=== PATIENT | female | born 1930 | race Caucasian/White ===

== ENCOUNTER 2017-05-17 08:44 | Day surgery (SDC) | payer MEDICARE ==
[~2017-05-17 08:44] MED LIST: Buffered Lidocaine 0.9% SYRIN* 5 ML/SYR SYRINGE INTRADERM ONE; Dexamethasone IV* 4 MG/ML 1 ML (4 MG) IV SLOW PU ONE; Famotidine IV* 10 MG/ML 2 ML (20 mg) IV ONE
[2017-05-17] MEDS ORDERED: Dexamethasone IV* 4 MG/ML 1 ML (4 MG) ONE (09:04)
[2017-05-17] MEDS ORDERED: Famotidine IV* 10 MG/ML 2 ML (20 mg) ONE (09:04)
[2017-05-17] MEDS ORDERED: Buffered Lidocaine 0.9% SYRIN* 5 ML/SYR SYRINGE ONE (09:04)
[2017-05-17] MEDS ORDERED: Oxymetazoline 0.05% NASAL SPR* 15 ML BTL ONE (10:35)
[2017-05-17] MEDS ORDERED: Lidocaine 4% TOPICAL* 50 ML TOP.SOLN ONE (10:36)
[2017-05-17] MEDS ORDERED: Lidocaine 2% PF * 5 ML VIAL ONE (10:44)
[2017-05-17] MEDS ORDERED: Propofol* 10 MG/ML 20 ML BTL IV PUSH ONE (10:44)
[2017-05-17] MEDS ORDERED: Silver Nitrate/Potassium Nitr* 1 EA STICK ONE ×2 (10:54→11:38)
[2017-05-17] MEDS ORDERED: Phenylephrine IV* 40 MCG/ML 10 ML SYRINGE ONE (11:15)
[2017-05-17] MEDS ORDERED: Acetaminophen TAB* 325 MG ONE (11:55)
[2017-05-17 12:48] VITALS: BP 123/91
--- NOTE | 2017-05-17 16:01 | OP ---
DATE OF OPERATION: 05/17/17 - [facility] DATE OF : 32 SURGEON: Salvador Cash MD. ANESTHESIOLOGIST: Vimal Miramontes MD ANESTHESIA: General laryngeal mask airway anesthesia. PRE-OP DIAGNOSIS: Epistaxis left side. POST-OP DIAGNOSIS: Epistaxis left side. OPERATIVE PROCEDURE: Endoscopic control of epistaxis from the left side. COMPLICATIONS: None. DISPOSITION: Good. SPECIMENS: None. ESTIMATED BLOOD LOSS: None. DESCRIPTION OF PROCEDURE: The patient was taken to the operating room and placed in the supine position on the operating table. General anesthesia was induced, maintained with laryngeal mask airway anesthesia. Left nostril was packed with cottonoids. After several minutes, this was removed and the endoscopes were used to visualize the nasal cavity. There is no definitive bleeding site, but appeared to be may be a little telangiectatic group of vessels on the posterior middle turbinate and also may be on the mid septum. Used silver nitrate cautery to cauterize the spots and couple more places along the floor of the nose that might have been bleeding as well. The patient tolerated the procedure well. No complications. Transferred to recovery room in stable condition. [id number]/CPS #: [id number] MTDD
== END 2017-05-17 12:49 | disposition home or self-care (01) ==
LOC: OR 08:44
PROVIDERS: ATTEND Otolaryngology
PROC: 0W3Q8ZZ Control Bleeding in Respiratory Tract, Via Natural or Artificial Opening Endoscopic (ICD-10-PCS; principal; 2017-05-17 10:30)
DX: R04.0 Epistaxis (principal); I12.0 Hypertensive chronic kidney disease with stage 5 chronic kidney disease or end stage renal disease; N18.6 End stage renal disease; Z99.2 Dependence on renal dialysis; E78.00 Pure hypercholesterolemia, unspecified; H90.3 Sensorineural hearing loss, bilateral; Z87.891 Personal history of nicotine dependence; Z88.8 Allergy status to other drugs, medicaments and biological substances
CPT/HCPCS: A9270-GY; J1100; J2704

== ENCOUNTER → 2018-01-28 10:36 | Day surgery (SDC) | payer MEDICARE ==
[~2018-01-28 10:36] MED LIST changes: -Buffered Lidocaine 0.9% SYRIN* 5 ML/SYR SYRINGE INTRADERM ONE; -Dexamethasone IV* 4 MG/ML 1 ML (4 MG) IV SLOW PU ONE; -Famotidine IV* 10 MG/ML 2 ML (20 mg) IV ONE; +Heparin 2 UNITS/ML IVPREMIX* 1,000 ML IV ONE; +Iodixanol* (CONTRAST) 320 MG/ML 100 ML SDV ONE; +Lidocaine 1% INJ* 10 MG/ML 30 ML SDV ONE; +Midazolam* 1 MG/ML 5 ML VIAL (5 MG) ONE; +fentaNYL* 50 MCG/ML 2 ML VIAL (100 MCG VIAL) ONE; +nitroGLYCERIN DRIP* 0 MCG/0 ML BTL ONE
--- NOTE | 2018-01-28 16:17 | PN ---
Progress Note - Progress Note Date of Service: 01/28/18 SOAP: Subjective: Patient being transferred to [facility] due to hematoma formation around the access sheath after fistulography which prevents safe sheath removal. Patient's only complaint is that she is hungry and wants a cup coffee to "make her headache go away". Objective: Pulse 74 bpm, latest BP 96/65 (73), 94% (room air) AAO x 3 No acute distress RRR, S1/S2 CTAB +Hematoma around fistula access 7 Sammarinese sheath, firm, but not hard and not changed since the conclusion of the procedure Dressing is C/D/I without bleeding tenderness elicited with palpation, but no pain at baseline +rumbling thrill felt and auscultated over outflow vein 2+ pulses at right brachial artery, radial artery and ulnar artery right hand is warm to touch with <2 capillary refill at all nail beds sensation intact to light touch over RUE, specifically in distribution of radial , median and ulnar nerves motor function grossly intact at RUE 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 Although bleeding appears controlled with [address], the hematoma prevents reliable compression at the venotomy site for sheath removal. In case emergent hematoma evacuation or any other vascular surgical procedure is needed emergently, the patient will be transferred to [facility].r Plan: 1. Transfer to [facility]. 2. Case was discussed over the telephone with Dr. Huston (VS) and Dr. Montalvo (ER physician that will be receiving patient in ER). 3. Ambulance transport. 4. Continuous CP monitorting. 5. Check RUE fistula site Q 1 hour. If hematoma appears to be enlarging then apply direct manual pressure adjacent to access sheath. If necessary, pressure can be applied directly over the arterial inflow anastomosis with is approximately 7 o'clock relative the sheath entry site. This was reviewed in person at the bedside with the [facility] nurse.
--- NOTE | 2018-01-29 12:04 | RAD ---
CPT II Codes: 6045F Procedure(s) performed: 1. Diagnostic fistulogram of the patient's right upper extremity brachial artery to basilic vein fistula. 2. Balloon angioplasty of the of the right upper arm outflow veins and central veins. Date of service: January 28, 2018 Indication for procedure: Clinical evidence of slow flow including audible bruit Comparison: Ultrasound dated September 25, 2013 Contrast: 40 mL of Visipaque Fluoroscopy Time: 14.2 minutes Vessels Accessed: Percutaneous access was obtained with ultrasound guidance in the right upper arm basilic vein fistula in the antegrade direction towards the heart. Catheter angiography, with the catheter tip located within the lumen of the following vessels, was performed at the right basilic vein, right axillary vein and right fistula arterial anastomosis at the junction with the right brachial artery Anesthesia: Conscious sedation with IV Fentanyl and Versed as well as local 1% lidocaine injected locally at the arteriotomy site. Conscious sedation time: Timeout: 1303 hours Case end: 1516 hours Total conscious sedation time: 2 hours and 3 minutes Procedure and Imaging findings: Prior to the procedure the risk and benefits were carefully explained and informed consent was obtained from the patient. The hemodialysis fistula was examined to determine strength of palpable thrill, condition of the overlying skin and direction of flow. The patient was appropriately positioned on the table in the angiography suite. The skin overlying and surrounding the hemodialysis fistula was prepped and draped in standard sterile fashion. Sterile precautions were employed including use of cap, mask, gown and sterile gloves. A formal time out was performed and all members of the team and the patient agreed to the patient, procedure and laterality. The fistula was examined with ultrasound and manufacturers representative images were obtained. Under sonographic control the fistula was accessed in the antegrade direction with a 21 gauge micropuncture needle. An image was recorded. Under fluoroscopic control a microwire was advanced proximally and the needle was exchange for a 5 Jordanian catheter. Through the catheter a venogram of the distal venous outflow was conducted demonstrating a series of multiple stenoses at the mid humeral right basilic vein.. A 0.035" wire was advanced through the 5 Jordanian catheter and the simple catheter was exchanged for a 7 Jordanian sidearm sheath. Utilizing a combination 0.035" guidewire and 5 Jordanian curved tip catheter the central veins were accessed and contrast venogram was performed demonstrating tortuosity at the proximal most right basilic vein with a focus of stenosis. There is a focus of stenosis at the right axillary vein and more long segment narrowing at the junction of the right subclavian vein with the superior vena cava. Based on the preliminary intravascular angiographic studies the following interventions were pursued. A 0.035 inch hydrophilic wire was advanced into the IVC securing access across the fistulogram venous outflow. Over the wire balloon angioplasty was performed with an 8 mm x 100 mm [place] balloon along essentially the entire length of the right basilic vein, axillary vein, subclavian vein and into the superior most portion of the superior vena cava. The 8 mm balloon was removed and replaced with a 10 mm x 80 mm Terumo Metacross balloon which was advanced up to the junction of the right subclavian and axillary veins and balloon angioplasty was performed. Balloon angioplasty was performed along the entire length of the right basilic vein, axillary vein and distal subclavian vein. Contrast venography through the side arm of the sheath shows improved patency flow through the venous outflow. Under fluoroscopic control the orientation of the access sheath was reversed towards the arterial anastomosis and the wire was advanced up the brachial artery under close fluoroscopic control. Contrast fistulography was performed with the tip of the sheath at the brachial arterial anastomosis which demonstrated 2 additional foci at the distal most venous outflow portion of the fistula and adequate arterial inflow. Contrast injected into the brachial artery was seen filling the right radial and ulnar arteries as well. It was discovered at this point the procedure that the percutaneous access sheath resided in between 2 focal stenoses. The wire was drawn back and readvanced into the basilic vein. At this point the procedure the 7-Jordanian sheath became dislocated outside the lumen of the vein. Attempts to reinsert the sheath with the stiffener were unsuccessful. Contrast arteriography performed showed subcutaneous extravasation into the surrounding subcutaneous tissue and formation of a small julian fistula hematoma. Utilizing an 11 cm length, 7-Jordanian sheath access was reobtained percutaneously and the sheath was advanced under fluoroscopic control to the mid-level right basilic vein. Examination grossly at the percutaneous access site showed evidence of a mildly tense hematoma but there appeared to be patent flow through the fistula, no active bleeding and the hematoma remained stable. The sheath was drawn back shoe cutter to the percutaneous access site and fistulography further confirmed the absence of active extravasation once the sheath was securely in the venous outflow. Due to concerns about hematoma preventing adequate pressure hemostasis externally, the 7-Jordanian sheath was secured to the skin, the site dressed and the patient was prepared for transfer to [facility]. Prior to transfer the perivascular hematoma remains stable, a palpable "rumbling" thrill could be felt overlying the fistula and the patient exhibited no neurovascular deficits in the right upper extremity including the right hand. The case was discussed with Dr. Huston (vascular surgery) and Dr. Montalvo (Emergency Medicine) at [facility] prior to ambulance transfer. SUMMARY OF PROCEDURE, IMAGING FINDINGS AND INTERVENTIONS PERFORMED: 1. Diagnostic studies performed: * Percutaneous right upper arm brachial artery to basilic vein fistula was obtained at the distal venous outflow in the antegrade direction (i.e. towards the heart) with ultrasound guidance. A sonographic image was recorded. * Diagnostic catheter angiography (necessary to perform the appropriate interventions) was performed with the catheter tip in the right basilic vein, right axillary vein and arterial anastomosis with the right brachial artery. * Catheter arteriography was performed of the entire venous outflow of the fistula and of the distal brachial artery inflow including the proximal portions of the right radial and ulnar arteries. 2. 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 * Adequate arterial inflow. * It was discovered during the arterial injection that the percutaneous access sheath was located between 2 additional stenoses in the distal most venous outflow. 3. Surgical interventions performed: * Balloon angioplasty of the venous outflow first with an 8 mm x 100 mm [place] balloon followed by a 10 mm x 80 mm Terumo Metacross balloon. 4. Interpretation of interventions performed: * Postprocedural fistulography and venography demonstrated improved, brisk patency through the venous outflow. * During percutaneous sheath adjustment extravasation was documented within the sheath was outside the vein lumen. This caused a hematoma in the form. The extravasation ceased once the sheath was appropriately advanced into the venous outflow. Plan: 1. The patient was transferred to [facility] to the care of Dr. Huston. My concern was the presence of a subcutaneous hematoma may prevent adequate compression hemostasis at the sheath site which may require urgent surgical attention. 2. After hemostasis is achieved the patient can likely restart hemodialysis promptly.
== END | disposition home or self-care (01) ==
LOC: CHICATH 10:36
PROVIDERS: ATTEND Radiology Diagnostic Radiology
DX: T82.868A Thrombosis due to vascular prosthetic devices, implants and grafts, initial encounter (principal); I12.0 Hypertensive chronic kidney disease with stage 5 chronic kidney disease or end stage renal disease; N18.6 End stage renal disease; Z99.2 Dependence on renal dialysis; D63.1 Anemia in chronic kidney disease; E78.5 Hyperlipidemia, unspecified; E03.9 Hypothyroidism, unspecified; M16.10 Unilateral primary osteoarthritis, unspecified hip; M70.60 Trochanteric bursitis, unspecified hip; G25.81 Restless legs syndrome; Z87.891 Personal history of nicotine dependence; Z95.0 Presence of cardiac pacemaker
CPT/HCPCS: 36901; 36902; 36907; 37249; 76937; 99156; 99157; C1725; C1887; C1894; J1644; J2250; J3010

== ENCOUNTER 2018-06-17 12:15 | Inpatient (IN) | payer MEDICARE ==
--- NOTE | 2018-06-17 13:11 | ED ---
Abdominal Pain/Female - HPI Summary HPI Summary: 88 y/o female presents to the ED c/o constant ABD pain starting two mornings ago after the pt woke up. Pain aggravated with food - even swallowing her own saliva induces pain. Pt denies change in appetite. Pain in the mid-ABD. Denies urinary and bowel symptoms. Denies nausea. Pt seen by PCP this morning - Dr. Guevara @ [facility]. Pt on dialysis MWF. Dr. Wayne informed of pt by PCP. This is scribe Ramin Fournier documenting for attending physician Ernie Velez M.D. - History of Current Complaint Chief Complaint: EDAbdPain Stated Complaint: POSS KIDNEY STONE/SENT BY DR WANYE Time Seen by Provider: 06/17/18 12:24 Hx Obtained From: Patient Onset/Duration: Lasting Days Timing: Constant Pain Intensity: 5 Pain Scale Used: 0-10 Numeric Location: Umbilical Aggravating Factor(s): Food Alleviating Factor(s): Nothing Associated Signs and Symptoms: Negative: Urinary Symptoms, Nausea Allergies/Adverse Reactions: Allergies Allergy/AdvReac Type Severity Reaction Status Date / Time atorvastatin Allergy Muscle Ache Verified 06/17/18 13:18 lidocaine Allergy Rash Verified 06/17/18 13:18 prilocaine Allergy Rash Verified 06/17/18 13:18 PACEMAKER- NO MRIs Allergy PACEMAKER- Uncoded 05/17/17 09:10 NO MRIs Home Medications: Home Medications Allopurinol TAB* [Zyloprim 100 MG TAB*] 100 mg PO DAILY 06/17/18 [History Confirmed 06/17/18] Folic Acid/Vit B Complex and C [Nephro-Eddi] 1 tab PO DAILY 06/17/18 [History Confirmed 06/17/18] Furosemide TAB* [Lasix TAB*] 80 mg PO DAILY 06/17/18 [History Confirmed 06/17/18 ] Levothyroxine TAB* [Synthroid TAB*] 75 mcg PO QAM 06/17/18 [History Confirmed ] Lovastatin (NF) [Mevacor (NF)] 40 mg PO QPM 06/17/18 [History Confirmed 06/17/18 ] Meclizine TAB* [Antivert 12.5 TAB*] 25 mg PO TID PRN 06/17/18 [History Confirmed 06/17/18] Metolazone TAB* [Zaroxolyn TAB*] 5 mg PO DAILY 06/17/18 [History Confirmed 06/17] Midodrine (NF) 15 mg PO DAILY 06/17/18 [History Confirmed 06/17/18] Pramipexole TAB* [Mirapex TAB*] 0.25 mg PO BEDTIME 06/17/18 [History Confirmed 06/17/18] Sevelamer TAB* [Renvela TAB*] 2,400 mg PO TID 06/17/18 [History Confirmed ] PMH/Surg Hx/FS Hx/Imm Hx Previously Healthy: No Endocrine/Hematology History: Reports: Hx Blood Transfusions, Hx Thyroid Disease - HYPOTHYROID, Hx Anemia Denies: Hx Anticoagulant Therapy, Hx Diabetes Cardiovascular History: Reports: Hx Coronary Artery Disease - HX OF CAROTID ENDARTERECTOMY-15 YRS AGO, Hx Hypercholesterolemia, Hx Hypotension, Hx Hypertension - ON MEDICATION FOR, Hx Pacemaker/ICD - DR. WAYNE, Other Cardiovascular Problems/Disorders - HX OF LOW HEART RATE Denies: Hx Deep Vein Thrombosis Respiratory History: Denies: Hx Asthma, Hx Chronic Obstructive Pulmonary Disease (COPD) GI History: Reports: Hx Diverticulosis, Hx Gastrointestinal Bleed History: Reports: Hx Chronic Renal Failure - Hemodialysis MWF, Hx Dialysis, Hx Renal Disease - renal failure, Other Problems/Disorders - RIGHT UPPER ARM fistula Musculoskeletal History: Reports: Hx Arthritis - "EVERY JOINT", Hx Gout Sensory History: Reports: Hx Cataracts, Hx Contacts or Glasses - GLASSES-READING , Hx Glaucoma - BILATERAL Denies: Hx Hearing Aid Opthamlomology History: Reports: Hx Cataracts, Hx Contacts or Glasses - GLASSES- READING, Hx Glaucoma - BILATERAL Neurological History: Reports: Hx Headaches Denies: Hx Dementia, Hx Seizures Psychiatric History: Denies: Hx Substance Abuse - Surgical History Surgery Procedure, Year, and Place: Tonsillectomy, Hysterectomy, Appendectomy. 2000 Left Carotid endardectomy. 2010 Peritoneal dialysis catheter. 2011 RUE dialysis fistula placed. REMOVAL OF A TUMOR FROM BUTTOCKS-SEVERAL YEARS AGO Hx Anesthesia Reactions: No Infectious Disease History: No Infectious Disease History: Reports: Hx Hepatitis - 60+ YEARS AGO, Hx Shingles Denies: Hx Human Immunodeficiency Virus (HIV), Traveled Outside the [place] in Last 30 Days - Family History Known Family History: Positive: Unknown - Social History Alcohol Use: Occasionally Alcohol Amount: 1-2 DRINKS Hx Substance Use: No Substance Use Type: Reports: None Hx Tobacco Use: Yes Smoking Status (MU): Former Smoker Type: Cigarettes Amount Used/How Often: 1 PPD X 50 YEARS Length of Time of Smoking/Using Tobacco: 50years Have You Smoked in the Last Year: No Review of Systems Constitutional: Negative Eyes: Negative ENT: Negative Cardiovascular: Negative Respiratory: Negative Positive: Abdominal Pain Genitourinary: Negative Musculoskeletal: Negative Skin: Negative Neurological: Negative Psychological: Normal All Other Systems Reviewed And Are Negative: Yes Physical Exam - Summary Physical Exam Summary: Appearance: The patient is well-nourished in no acute distress and in no acute pain. Skin: The skin is warm and dry and skin color reflects adequate perfusion. HEENT: The head is normocephalic and atraumatic. The pupils are equal and reactive. The conjunctivae are clear and without drainage. Nares are patent and without drainage. Mouth reveals moist mucous membranes and the throat is without erythema and exudate. The external ears are intact. The ear canals are patent and without drainage. The tympanic membranes are intact. Neck: The neck is supple with full range of motion and non-tender. There are no carotid bruits. There is no neck vein distension. Respiratory: Chest is non-tender. Lungs are clear to auscultation and breath sounds are symmetrical and equal. Cardiovascular: Heart is regular rate and rhythm. There is no murmur or rub auscultated. There is no peripheral edema and pulses are symmetrical and equal. Abdomen: The abdomen is soft and there is mild epigastric tenderness. There are normal bowel sounds heard in all four quadrants and there is no organomegaly palpated. Musculoskeletal: There is no back tenderness noted. Extremities are non-tender with full range of motion. There is good capillary refill. There is no peripheral edema or calf tenderness elicited. Neurological: Patient is alert and oriented to person, place and time. The patient has symmetrical motor strength in all four extremities. Cranial nerves are grossly intact. Deep tendon reflexes are symmetrical and equal in all four extremities. Psychiatric: The patient has an appropriate affect and does not exhibit any anxiety or depression. Triage Information Reviewed: Yes Vital Signs On Initial Exam: Initial Vitals Temp Pulse Resp BP Pulse Ox 97.6 F 79 16 125/87 99 06/17/18 12:19 06/17/18 12:19 06/17/18 12:19 06/17/18 12:19 06/17/18 12:19 Vital Signs Reviewed: Yes Diagnostics - Vital Signs Vital Signs Temp Pulse Resp BP Pulse Ox 06/17/18 12:36 78 97 06/17/18 12:35 78 124/87 97 06/17/18 12:19 97.6 F 79 16 125/87 99 - Laboratory Result Diagrams: 06/17/18 13:52 06/17/18 13:52 Lab Statement: Any lab studies that have been ordered have been reviewed, and results considered in the medical decision making process. 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 No evidence of periaortic hematoma is noted. There is left pleural effusion noted. End-stage renal disease with atrophic kidneys and cortical cysts in both kidneys although a complex lesion is noted from the upper pole of the right kidney. Cholelithiasis without evidence of biliary duct dilatation is noted. No abnormally dilated loops of bowel are noted. Colon is filled with stool. CT Interpretation Completed By: Radiologist - Ultrasound No standard instances Ultrasound Interpretation: Positive (See Comments) - GALLBLADDER US - CHOLELITHIASIS WITHOUT GALLBLADDER WALL THICKENING, PERICHOLECYSTIC FLUID, OR DUCTAL DILATATION. Ultrasound Interpretation Completed By: Radiologist Re-Evaluation - Re-Evaluation 1 Re-Evaluation Time: 18:43 Comment: Discuss test results, plan of care Abdominal Pain Fem Course/Dx - Course Course Of Treatment: Ms. Tamez presented complaining of significant pain in her chest and epigastrium when she tried to eat anything for the last 2 days. She can even eat ice cubes or swallow her saliva without pain. She went to her PCP where an ultrasound was obtained which showed a kidney stone. Because she is on hemodialysis and does not urinate any more she was sent into the emergency department for further workup. She was mildly tender in the epigastrium. She was given sucralfate while labs were obtained and a noncontrasted CT scan. Her labs showed a slight elevation of her alkaline phosphatase at 177. 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 She did state that the sucralfate had helped her a little bit. IV was initiated at that point and she was given IV Protonix and an ultrasound of her gallbladder obtained. She was found to have gallstones but no acute cholecystitis signs. The IV Protonix significantly helped her pain and she was able to take some ice cubes without much distress. We tried a sandwich which she was able to eat but it still hurt a lot when she ate that. I asked the hospitalist to evaluate her for admission and they requested a CTA. The CTA showed the aneurysm to be 5.7 cm in width and 2 contain circumferential thrombus. I do not think the pain is coming from her aneurysm but rather is a GI pain. I did consult twice with Dr. Owusu at [facility] who reassured us that is not unusual to have thrombus in an aneurysm. - Diagnoses Provider Diagnoses: Epigastric abdominal pain, Thoracoabdominal aneurysm - Provider Notifications Discussed Care Of Patient With: Junior Wayne Time Discussed With Above Provider: 13:30 Discharge - Sign-Out/Discharge Documenting (check all that apply): Patient Departure - Discharge Plan Condition: Stable Disposition: ADMITTED TO [facility] Referrals: Gama GARCIA,Ricki Sabillon [Primary Care Provider] - - Billing Disposition and Condition Condition: STABLE Disposition: Admitted to [facility]
[2018-06-17] MEDS ORDERED: Sucralfate TAB* 1 GM PO ONE (13:35)
[2018-06-17 14:02] LABS: ABS Basophils 0.1 10^3/ul (0-0.2); ABS Eosinophils 0.1 10^3/ul (0-0.6); ABS Lymphocytes 1.3 10^3/ul (1.0-4.8); ABS Monocytes 0.6 10^3/ul (0-0.8); ABS Neutrophils 4.6 10^3/ul (1.5-7.7); ABS Nucleated RBC 0 10^3/ul; Hematocrit 44 % (35-47); Hemoglobin 14.9 g/dl (12.0-16.0); Lymphocyte % 19.3 % (25-47); Mean Corpuscular HGB Conc 34 g/dl (31-36); Mean Corpuscular Hemoglobin 32 pg (27-31); Mean Corpuscular Volume 94 fL (80-97); Mean Platelet Volume 8.1 um3 (7.4-10.4); Nucleated Red Blood Cells % 0; Platelet Count 203 10^3/ul (150-450); Red Blood Count 4.64 10^6/ul (4.00-5.40); Red Cell Distribution Width 14 % (10.5-15); White Blood Count 6.7 10^3/ul (3.5-10.8)
--- NOTE | 2018-06-17 14:14 | RAD ---
Indication: Epigastric pain. CT of the abdomen and pelvis was performed without oral or IV contrast administration. Coronal and sagittal reconstructed images were obtained. The lung bases demonstrate a small left pleural effusion with left basilar atelectasis. There is cardiomegaly noted. Pacemaker leads are in place. No pericardial effusion is noted. There is aneurysmal dilatation of the lower thoracic aorta and upper abdominal aorta measuring 12 cm in length by 5.1 cm in greatest width x 4.9 cm in greatest AP dimension. No evidence of periaortic fluid is noted. The liver is normal in size. No focal lesions or intrahepatic duct dilatation is noted. The gallbladder demonstrates gallstones in the dependent portion. No pericholecystic fluid or wall thickening. Common duct is not dilated. The pancreas demonstrates no mass effect or ductal dilatation. The spleen is normal in size. No adrenal lesions are noted. The kidneys demonstrate atrophy. Calcified cystic lesion is noted from the upper pole of the right kidney. Additional cystic lesion is noted in the upper pole of the left kidney. No retroperitoneal lymphadenopathy is noted. The stomach is not abnormally distended. CT of the pelvis demonstrates urinary bladder to be partially collapsed. No dilated loops of bowel are noted. Diverticulosis without definite evidence of diverticulitis. Atherosclerotic aorta is noted. No definite free fluid is identified. Urinary bladder is partially collapsed. The bony structures demonstrates right hip internal fixation. Pelvic ring is otherwise intact. No lytic lesions are identified. 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 No evidence of periaortic hematoma is noted. There is left pleural effusion noted. End-stage renal disease with atrophic kidneys and cortical cysts in both kidneys although a complex lesion is noted from the upper pole of the right kidney. Cholelithiasis without evidence of biliary duct dilatation is noted. No abnormally dilated loops of bowel are noted. Colon is filled with stool.
[2018-06-17 14:27] LABS: EGFR Non-African American 11.1 (>60)
[2018-06-17 14:58] LABS: Urine Appearance Clear; Urine Blood Negative (Negative); Urine Color Yellow; Urine Ketones Negative (Negative); Urine Protein 2+(100 mg/dL) (Negative); Urine Red Blood Cell Absent (Absent); Urine Specific Gravity 1.008 (1.010-1.030); Urine Urobilinogen Negative (Negative); Urine White Blood Cell Trace(0-5/hpf) (Absent)
[2018-06-17] MEDS ORDERED: Pantoprazole IV* 40 MG IV ONE (15:15)
--- NOTE | 2018-06-17 18:40 | RAD ---
INDICATION: Right upper quadrant pain. Cholelithiasis COMPARISON: CT abdomen and pelvis same date TECHNIQUE: Longitudinal and transverse scans of the right upper quadrant were obtained. Doppler interrogation of the hepatic and portal venous system was performed. FINDINGS: Liver: The liver is normal in size and echogenicity. There are no focal masses. The liver measures 17.2 cm in cephalocaudal dimension. Vessels: There is normal hepatic and portal venous flow. Bile ducts: There is no evidence of intrahepatic or extrahepatic ductal dilatation. The common duct measures 0.6 cm. Gallbladder: There are multiple gallstones. There is no thickening gallbladder wall or pericholecystic fluid. Pancreas: The visualized pancreas appears normal Right kidney: The right kidney is atrophic and echogenic consistent with medical renal disease. There is a cyst in the upper pole. The kidney measures 6.6 x 2.7 x 2.0 cm. IVC and aorta: There is diffuse aortic ectasia as described on the concurrent CT examination. Fluid: There is no ascites. Other: None. IMPRESSION: CHOLELITHIASIS WITHOUT GALLBLADDER WALL THICKENING, PERICHOLECYSTIC FLUID, OR DUCTAL DILATATION.
[2018-06-17] MEDS ORDERED: Iodixanol* (CONTRAST) 320 MG/ML 100 ML SDV IV ONE (19:24)
--- NOTE | 2018-06-17 19:56 | RAD ---
INDICATION: Right upper quadrant pain. Cholelithiasis. Evaluate for aortic dissection COMPARISON: L bladder sonogram same date; CT of the abdomen and pelvis same date. TECHNIQUE: Axial source images were obtained from the thoracic inlet to the symphysis pubis following administration of oral and intravenous contrast. 100 mL Visipaque 320 was utilized. Coronal and sagittal reconstructed images were acquired. CHEST FINDINGS: Neck/thyroid: The visualized neck to include the thyroid appear normal. Chest wall: There are no acute abnormalities of the bony thorax or chest wall. There is no supraclavicular, infraclavicular, or axillary lymphadenopathy. Lungs : There are no pulmonary parenchymal masses or infiltrates. There is coarsening of interstitium compatible with chronic change. There are no endobronchial lesions. Cardiomediastinal structures: The heart is significantly enlarged. There is cardiac pacemaker artifact. There is no pericardial effusion. There is no evidence of aortic aneurysm or dissection. The pulmonary vessels appear normal. There is no mediastinal or hilar adenopathy. The esophagus appears normal. Pleura : There are no pleural-based masses or effusions. ABDOMINAL/PELVIC FINDINGS: Liver: The early arterial phase imaging liver demonstrates no acute findings. Gallbladder: There is cholelithiasis as documented on the recent ultrasound. Spleen: Early arterial phase imaging of the spleen is normal. Pancreas: There is no evidence of pancreatic mass or ductal dilatation. Adrenal glands: There is no evidence of adrenal mass. This likely left adrenal gland hyperplasia. Kidneys: Both kidneys are atrophic and there is very little contrast excretion. There is a exophytic fatty lesion arising from the upper pole the right kidney. There is a cyst the upper pole the left kidney. Adenopathy: There is no evidence of adenopathy by size criteria. Fluid collections: There are no free or localized fluid collections. Vessels:The thoracic aorta is ectatic. There is no proximal focal aneurysm. 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 This aneurysm measures approximately 5.7 x 5.7 cm in maximum transverse dimension and is associated with circumferential thrombus. There are no displaced intimal calcifications to suggest acute aortic dissection. There is origin disease of the visceral branches but the visceral branches are patent to include the small caliber renal arteries. GI tract: There is limited evaluation without oral contrast. There are no acute findings. There are scattered diverticula. There is no obstruction. Pelvic organs: Hysterectomy. No adnexal mass Bladder: There are no bladder masses. Abdominal and pelvic soft tissues: There is mild diffuse subcutaneous edema. Osseous structures: There is no acute osseous change. There is spondylitic change of the thoracolumbar spine. There is a Fox screw in the right hip. IMPRESSION: 1. 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 NO EVIDENCE OF ACUTE AORTIC DISSECTION. THE REMAINDER THE EXAMINATION IS LIKEWISE UNCHANGED. 2. ADVANCED EMPHYSEMATOUS CHANGES. 3. CARDIOMEGALY. 4. ATROPHIC KIDNEYS. 5. HYSTERECTOMY.
[2018-06-17] MEDS ORDERED: Senna TAB PO PRN (21:25)
[2018-06-17] MEDS ORDERED: Acetaminophen TAB* 325 MG PO PRN (21:25)
[2018-06-17] MEDS ORDERED: Al Hydrox/Mg Hydrox/Simet LIQ* 30 ML UDC PO PRN (21:25)
[2018-06-17] MEDS ORDERED: Ondansetron INJ* 2 MG/ML VIAL IV PRN (21:25)
[2018-06-17] MEDS ORDERED: Docusate CAP* 100 MG PO PRN (21:25)
[2018-06-17] MEDS ORDERED: Meclizine TAB* 12.5 MG PO PRN (21:29)
[2018-06-17] MEDS: Heparin VIAL(*) 5000 UNITS/ML VIAL (FIVE THOUSAND) SUBCUT SCH (22:58)
--- NOTE | 2018-06-18 01:31 | HP ---
CC: Ricki Malloy MD * HISTORY AND PHYSICAL: DATE OF ADMISSION: 06/17/18 TIME OF EVALUATION: 2099 PRIMARY CARE PHYSICIAN: Ricki Malloy MD CHIEF COMPLAINT: Abdominal pain. HISTORY OF PRESENT ILLNESS: This is an 88-year-old female with past medical history of end-stage renal failure, on hemodialysis, who presents to the emergency room from her primary care's office for abdominal pain. The patient states she has developed epigastric pain that began the morning of 06/15/18. She states she is able to take tiny bites and food will go down, but she develops extreme epigastric pain. She did have dry heaves on 06/15/18, but none since then. She has had normal bowel movements. No chest pain, no shortness of breath. She denies choking any food. She does not feel that the food is getting stuck. No fevers. No melena. No bright red blood per rectum. No history of having an EGD in the past. She states she had a colonoscopy several years ago. She states over the past 6 months, her appetite has decreased. She no longer has a taste for things that she normally did. Since starting hemodialysis 6 to 7 years ago, her weight has been down about 60 pounds. Otherwise, review of systems is negative. In the emergency room, the patient had labs and imaging. She was given Protonix 40 mg IV, Carafate 1 g. There was concern for her abdominal aortic aneurysm. [facility] vascular surgeon, Dr. Owusu, was contacted. They do not feel that the aneurysm was related to her presentation and did not need to be urgently addressed and the hospitalist service was contacted. PAST MEDICAL HISTORY: 1. End-stage renal disease, on hemodialysis Saturday, Saturday, Saturday. 2. Hypertension. 3. Hypothyroidism. 4. Hyperlipidemia. 5. Restless leg. 6. Osteoarthritis. 7. 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 8. History of a CVA. 9. History of subclavian stenosis. 10. Hard of hearing, wearing hearing aids. 11. Right hip fracture, status post repair. 12. Left carotid endarterectomy. 13. History of hysterectomy. 14. Appendectomy. 15. Tonsillectomy. MEDICATIONS: 1. Renvela 800 mg p.o. t.i.d. 2. Midodrine 5 mg t.i.d. with dialysis. 3. Nephro-Eddi 1 tab daily. 3. Pramipexole 0.25 mg 1 tab 2 hours before bedtime. 4. Synthroid 75 mcg daily. 5. Mevacor 40 mg daily. 6. Allopurinol 100 mg daily. 7. Lasix 80 mg daily. 8. Meclizine 25 mg daily as needed for dizziness. 9. Sensipar 30 mg daily after meal. 10. Metolazone 5 mg daily. ALLERGIES: ATORVASTATIN, LIDOCAINE, PRILOCAINE. SOCIAL HISTORY: The patient lives at home. Her son lives across the street. She states she is independent of her ADL. She uses a 3-wheeled scooter. No recent history of fall. She quit smoking 18 years ago. She smoked a pack per day for 50 years. Occasional beer or wine. Her healthcare proxy is her granddaughter, Leatha Cast. CODE STATUS: Full code. FAMILY HISTORY: Mother diseased, unclear on her cause and father diseased as well, but unclear of the cause as well. REVIEW OF SYSTEMS: A 14-point review of systems as mentioned in the HPI. Otherwise, negative. PHYSICAL EXAMINATION GENERAL: No acute distress, resting comfortably. VITAL SIGNS: Temp 97.6, pulse rate 85, respiratory rate 16, oxygen saturation 98 % on room air, blood pressure 115/88. HEENT: Head is normocephalic. Pupils are asymmetric. The left pupil is slightly larger than the right, both reactive. Oropharynx: Mucous membranes are dry. NECK: Supple. No adenopathy. RESPIRATORY: Diminished breath sounds. No wheezing, rhonchi, or rales. CARDIAC: Blowing systolic murmur, most prominent at the right sternal base. Regular rate and rhythm. ABDOMEN: Positive bowel sounds, some mild mid abdominal tenderness. No rebound or guarding. Mild distention. EXTREMITIES: Trace pretibial edema with significant varicosities on her lower extremities. +1 DP. NEUROLOGIC: No gross focal neurologic deficits. DIAGNOSTIC STUDIES/LAB DATA: White cell count 6.7, hemoglobin is 14.9, hematocrit 44, platelets 203. Sodium 136, potassium 4.4, chloride 93, bicarb 34 , BUN 23, creatinine 3.85, glucose 89. Albumin 4.1. RADIOGRAPHIC DATA: Aneurysmal dilatation of the lower thoracic and upper abdominal aorta measuring at least 12 cm in length by 5.1 x 4.9. No evidence of a periaortic hematoma noted. Left pleural effusion, end-stage renal disease with atrophic kidneys, and cortical cyst in both kidneys, although complex lesion is noted from the upper pole of the right kidney. No abnormally dilated loops of bowel are noted. Colon is filled with stool. Gallbladder ultrasound: Cholelithiasis without gallbladder wall thickening, pericholecystic fluid or ductal dilatation. Chest, abdomen, and pelvis CT: Aneurysmal dilatation of the lower thoracic and abdominal aorta as also described in the concurrent noncontrast CT. No evidence of acute aortic dissection. The remainder of the exam likely is unchanged, advanced emphysematous changes, cardiomegaly, atrophic kidneys, hysterectomy. ASSESSMENT AND PLAN: This is an 88-year-old female with past medical history of end-stage renal disease, who presents to the emergency room with 3 days of epigastric pain, difficulty tolerating p.o. 1. Epigastric pain. Assessment: The patient's findings are concerning for GI etiology including esophagitis, gastritis, gastric ulcer. She is able to take small bites, but has significant pain afterwards. Plan: Admit her for inpatient evaluation and GI consultation and possible EGD. We will keep her on a clear liquid diet. Continue her on the sucralfate and the Protonix IV. 2. Aneurysm. The patient appears to have a new diagnosis of a thoracic and abdominal aortic aneurysm. Recommend close outpatient followup and evaluation by a vascular surgeon as an outpatient. 3. End-stage renal disease, on hemodialysis. I recommend contacting Dr. Cleary and his dialysis team as the patient will need dialysis in the morning. We will hold her Lasix and metolazone in the setting of decreased p.o. Continue her midodrine before dialysis. 4. Gout. Continue her allopurinol. 5. Hypothyroidism. Continue her Synthroid. 6. Restless legs. Continue her Mirapex at bedtime. 7. FEN: As mentioned, clear liquid diet. 8. DVT prophylaxis: The patient scores high risk. We will place her on heparin subcu t.i.d. 9. Code status: The patient is a full code. PATIENT TIME: Greater than 45 minutes were spent doing the history and physical , more than half of the time was spent in direct patient contact. [id number]/[facility] #: [id number] [facility]
[2018-06-18] MEDS: Levothyroxine TAB* 75 MCG TAB PO SCH (05:07)
[2018-06-18] MEDS: Heparin VIAL(*) 5000 UNITS/ML VIAL (FIVE THOUSAND) SUBCUT SCH ×3 (05:08→20:09)
[2018-06-18] MEDS: CMCS: Midodrine (NF) 5 MG TAB PO SCH (08:55)
[2018-06-18] MEDS: Sucralfate SUSP 1 GM/10 ml 10 ML UDC PO SCH ×3 (08:55→17:23)
[2018-06-18] MEDS: Cinacalcet TAB* 30 MG PO SCH ×3 (08:56→20:09)
[2018-06-18] MEDS: Allopurinol TAB* 100 MG PO SCH (08:56)
[2018-06-18] MEDS: Pantoprazole IV* 40 MG IV SCH (08:57)
[2018-06-18] MEDS: Sevelamer TAB* 800 MG PO SCH ×5 (08:57→20:16)
[2018-06-18] MEDS ORDERED: Midodrine (NF) 5 MG TAB PO SCH (09:00)
[2018-06-18] MEDS ORDERED: HYDROmorphone INJ* 0.5 MG/0.5 ML SYRINGE IV SLOW PU PRN (10:15)
[2018-06-18 10:51] LABS: ABS Basophils 0.1 10^3/ul (0-0.2); ABS Eosinophils 0.2 10^3/ul (0-0.6); ABS Lymphocytes 0.8 10^3/ul (1.0-4.8); ABS Monocytes 0.6 10^3/ul (0-0.8); ABS Neutrophils 4.6 10^3/ul (1.5-7.7); ABS Nucleated RBC 0 10^3/ul; Eosinophil % 3.1 % (0-6); Hematocrit 43 % (35-47); Hemoglobin 14.7 g/dl (12.0-16.0); Lymphocyte % 13.4 % (25-47); Mean Corpuscular HGB Conc 34 g/dl (31-36); Mean Corpuscular Hemoglobin 32 pg (27-31); Mean Corpuscular Volume 94 fL (80-97); Mean Platelet Volume 8.5 um3 (7.4-10.4); Nucleated Red Blood Cells % 0.1; Platelet Count 230 10^3/ul (150-450); Red Blood Count 4.62 10^6/ul (4.00-5.40); Red Cell Distribution Width 14 % (10.5-15); White Blood Count 6.3 10^3/ul (3.5-10.8)
[2018-06-18 11:09] LABS: EGFR Non-African American 9.3 (>60)
--- NOTE | 2018-06-18 16:09 | PN ---
Subjective Date of Service: 06/18/18 Interval History: Moaning in pain when I saw her this morning around 10 am. She says it comes in waves, it was a 10/10 when I walked in to the room but while we were talking it resolved, then came back a few minutes later, then resolved after about 30 seconds. She had a basin with spit in it, no gastric contents. No nausea, diarrhea, melena, hematochezia, dysphagia, or odynophagia. Objective Active Medications: Acetaminophen (Tylenol Tab*) 650 mg PO Q4H PRN PRN Reason: FEVER/PAIN Al Hydrox/Mg Hydrox/Simethicone (Maalox Plus*) 30 ml PO Q6H PRN PRN Reason: INDIGESTION Allopurinol (Zyloprim Tab*) 100 mg PO DAILY [facility] Last Admin: 06/18/18 08:56 Dose: 100 mg Cinacalcet (Sensipar Tab*) 30 mg PO TID [facility] Last Admin: 06/18/18 08:56 Dose: 30 mg Docusate Sodium (Colace Cap*) 100 mg PO BID PRN PRN Reason: CONSTIPATION Heparin Sodium (Porcine) (Heparin Vial(*)) 5,000 units SUBCUT Q8HR [facility] Last Admin: 06/18/18 05:08 Dose: 5,000 units Hydromorphone HCl (Dilaudid Inj*) 0.5 mg IV SLOW PU Q4H PRN PRN Reason: PAIN Levothyroxine Sodium (Synthroid Tab*) 75 mcg PO 0600 [facility] Last Admin: 06/18/18 05:07 Dose: 75 mcg Meclizine HCl (Antivert Tab*) 25 mg PO TID PRN PRN Reason: DIZZINESS Midodrine (Midodrine (Nf)) 5 mg PO DAILY [facility]; Protocol Last Admin: 06/18/18 08:55 Dose: 5 mg Ondansetron HCl (Zofran Inj*) 4 mg IV Q4H PRN PRN Reason: NAUSEA/VOMITING Last Admin: 06/18/18 09:55 Dose: 4 mg Pantoprazole Sodium (Protonix Iv*) 40 mg IV Q24H [facility] Last Admin: 06/18/18 08:57 Dose: 40 mg Pramipexole Dihydrochloride (Mirapex Tab*) 0.25 mg PO BEDTIME [facility] Senna (Senokot Tab*) 1 tab PO BID PRN PRN Reason: CONSTIPATION Sevelamer Carbonate (Renvela Tab*) 2,400 mg PO TID [facility] Last Admin: 06/18/18 08:57 Dose: 2,400 mg Sucralfate (Sucralfate Susp) 1 gm PO AC [facility] Last Admin: 06/18/18 08:55 Dose: 1 gm Vital Signs - 8 hr 06/18/18 08:21 Temperature 98.0 F Pulse Rate 73 Respiratory 16 Rate Blood Pressure 113/77 (mmHg) O2 Sat by Pulse 97 Oximetry Oxygen Devices in Use Now: None Appearance: uncomfortable, tearful, nontoxic appearing Eyes: No Scleral Icterus, PERRLA Ears/Nose/Mouth/Throat: NL Teeth, Lips, Gums, Clear Oropharnyx Neck: NL Appearance and Movements; NL JVP Respiratory: Symmetrical Chest Expansion and Respiratory Effort, Clear to Auscultation Cardiovascular: NL Sounds; No Murmurs; No JVD, No Edema Abdominal: No Hepatosplenomegaly, - - tender to palpation in the epigastric area , + balderrama's sign Lymphatic: No Cervical Adenopathy Extremities: No Edema, - - RUE fistula Skin: No Rash or Ulcers Neurological: Alert and Oriented x 3 Result Diagrams: 06/18/18 10:36 06/18/18 10:36 Microbiology and Other Data: Microbiology 06/17/18 14:36 Urine Culture - Final Urine Assess/Plan/Problems-Billing Assessment: - Patient Problems (1) Epigastric abdominal pain Current Visit: Yes Status: Acute Code(s): R10.13 - EPIGASTRIC PAIN SNOMED Code(s): 57016163 Comment: Getting EGD this afternoon to evaluate for esophagitis, gastritis Repeat stat lactate and liver function normal this morning No fever If EGD is unremarkable, would consider HIDA tomorrow continue analgesia and antiemetics prn (2) ESRD (end stage renal disease) Current Visit: No Status: Acute Code(s): N18.6 - END STAGE RENAL DISEASE SNOMED Code(s): 76412020 Comment: lytes and volume okay HD today (3) CVA (cerebral vascular accident) Current Visit: No Status: Acute Code(s): I63.9 - CEREBRAL INFARCTION, UNSPECIFIED SNOMED Code(s): 436132136 Comment: in 2016 no residual deficits
[2018-06-18] MEDS: Pramipexole TAB* 0.125 MG PO SCH (20:09)
--- NOTE | 2018-06-19 00:45 | CONS ---
CC: Dr. Curtis; Dr. Osullivan; Dr. Ricki Malloy.* GASTROENTEROLOGY CONSULTATION: DATE OF CONSULT: 06/18/18 HOSPITAL PROVIDER: Frances Ram MD PRIMARY PROVIDER: Ricki Malloy MD REASON FOR CONSULT: Abdominal pain. HISTORY OF PRESENT ILLNESS: Brigid is a very pleasant 88-year-old female with a past medical history of end-stage renal disease on hemodialysis, history of CVA, history of subclavian stenosis, history of pacemaker placement secondary to AV block, hypertension, who presented to [facility] Emergency Room with complaints of abdominal pain. She states this pain began on 06/15/18 quite suddenly about 4-days ago. She has only been able to take small bites of food due to increased epigastric pain after eating. She does admit to some dry heaving the day the pain began, however, that has subsided. She denies melena and hematochezia. She has no prior history of epigastric pain. She denies odynophagia. She does admit to having an upper endoscopy in the distant past and colonoscopy several years ago. She has had a decreased appetite over the last few days. No recent weight changes. She states she feels slightly better after receiving Protonix and Carafate. She was noted to have an abdominal aortic aneurysm and was seen by vascular surgeon, however, they do not feel that emergent surgery is needed at this time. PAST MEDICAL HISTORY: 1. End-stage renal disease on hemodialysis. 2. Hypertension. 3. Hypothyroidism. 4. Hyperlipidemia. 5. Restless leg. 6. Osteoarthritis. 7. History of CVA. 8. History of subclavian stenosis. 9. Pacemaker insertion secondary to AV jayda block. 10. Hard of hearing. PAST SURGICAL HISTORY: 1. Right hip fracture, status post repair. 2. Left carotid endarterectomy. 3. History of hysterectomy. 4. Distant history of endoscopy and colonoscopy. 5. Appendectomy. 6. Tonsillectomy. HOME MEDICATIONS: Include: 1. Renvela. 2. Midodrine. 3. Nephro-Eddi. 4. Pramipexole. 5. Synthroid. 6. Mevacor. 7. Allopurinol. 8. Lasix. 9. Meclizine. 10. Sensipar. 11. Metolazone. ALLERGIES: ATORVASTATIN, LIDOCAINE, PRILOCAINE. FAMILY HISTORY: Unknown. SOCIAL HISTORY: The patient currently lives alone at home. She quit smoking approximately 18 years ago. She admits to occasional beer, wine use. REVIEW OF SYSTEMS: Review of systems, on a 14-point scale, have been reviewed all pertinent positives and negatives have been noted above in the HPI. PHYSICAL EXAM: Vital Signs: Temperature 98.8, pulse 73, respirations 17, oxygenation 96% on room air, blood pressure 113/78. Generally, the patient is alert and oriented x3, in no acute distress, well-nourished appearing. HEENT: Normocephalic, atraumatic. Extraocular muscles intact, anicteric sclerae bilaterally. Cardiovascular Exam: Regular rate, rhythm. Pulmonary Exam: Clear to auscultation bilaterally. Abdominal Exam: Positive bowel sounds, soft , nontender, nondistended. No rebound, guarding or rigidity. Extremities: No clubbing, cyanosis, or edema. Neurological Exam: No gross focal deficits are appreciated at this time. LABORATORY AND DIAGNOSTICS: WBC 6.3, hemoglobin 14.7, hematocrit 43, platelets 230. Sodium 135, potassium 4.4, chloride 96, CO2 28, anion gap 11, BUN 32, creatinine 4.47, glucose 105, lactic acid 1.0, calcium 7.8, total bilirubin 1.0 , AST 22, ALT 12 alkaline phosphatase 177, CRP 1.15 total protein 6.3, albumin 3.6, lipase 22. Urinalysis, positive proteins, positive leukocyte esterase, positive squamous epithelial cells. ASSESSMENT AND PLAN: Brigid is a very pleasant 88-year-old female with a past medical history of hypertension, cerebrovascular accident, subclavian stenosis, end-stage renal disease on hemodialysis, pacemaker insertion secondary to AV jayda block, who presented to [facility] ER yesterday evening with complaints of 4-day history of severe epigastric pain. She denies current nonsteroidal anti-inflammatory drug use. Gastroenterology was consulted for further evaluation. Currently, her hemoglobin remains stable. She denies any signs of gastrointestinal bleeding. We will plan for an upper endoscopy today to further evaluate the patient's etiology of epigastric pain. She could potentially have a gastric ulcer, Demond erosions within a hiatal hernia, paraesophageal hernia, esophageal stricture, Shatzki's ring vs esophageal tumor. She is currently on Protonix and Carafate. We will keep her n.p.o. Further recommendations will be provided as the patient's clinical course progresses. Thank you, Dr. Curtis, for allowing us to participate in the care of your patient. If you should have any further questions or concerns, please do not hesitate to contact us. [id number]/[facility] #: [id number] QUINN
[2018-06-19] MEDS: Levothyroxine TAB* 75 MCG TAB PO SCH (05:58)
[2018-06-19] MEDS: Heparin VIAL(*) 5000 UNITS/ML VIAL (FIVE THOUSAND) SUBCUT SCH ×3 (05:58→22:06)
[2018-06-19 06:26] LABS: ABS Basophils 0.1 10^3/ul (0-0.2); ABS Eosinophils 0.3 10^3/ul (0-0.6); ABS Monocytes 0.5 10^3/ul (0-0.8); ABS Neutrophils 3.1 10^3/ul (1.5-7.7); ABS Nucleated RBC 0 10^3/ul; Eosinophil % 5.3 % (0-6); Hematocrit 47 % (35-47); Hemoglobin 15.8 g/dl (12.0-16.0); Mean Corpuscular HGB Conc 33 g/dl (31-36); Mean Corpuscular Hemoglobin 32 pg (27-31); Mean Corpuscular Volume 94 fL (80-97); Mean Platelet Volume 8.6 um3 (7.4-10.4); Nucleated Red Blood Cells % 0.1; Platelet Count 198 10^3/ul (150-450); Red Blood Count 5.02 10^6/ul (4.00-5.40); Red Cell Distribution Width 14 % (10.5-15); White Blood Count 4.8 10^3/ul (3.5-10.8)
[2018-06-19 06:37] LABS: INR 0.91 (0.77-1.02)
[2018-06-19 06:41] LABS: EGFR Non-African American 13.7 (>60)
--- NOTE | 2018-06-19 08:14 | PN ---
Subjective Date of Service: 06/19/18 Interval History: Unable to get egd yesterday due to more urgent cases. She has had a few more episodes of abdominal pain--every episode has occurred after taking food or liquid. It is in the middle of her epigastrium without radiation and assoicated with nausea. She feels good right now. No fevers. No bowel movement yet today. Objective Active Medications: Acetaminophen (Tylenol Tab*) 650 mg PO Q4H PRN PRN Reason: FEVER/PAIN Al Hydrox/Mg Hydrox/Simethicone (Maalox Plus*) 30 ml PO Q6H PRN PRN Reason: INDIGESTION Allopurinol (Zyloprim Tab*) 100 mg PO DAILY [facility] Last Admin: 06/18/18 08:56 Dose: 100 mg Cinacalcet (Sensipar Tab*) 30 mg PO TID [facility]PL[facility] Last Admin: 06/18/18 20:09 Dose: 30 mg Docusate Sodium (Colace Cap*) 100 mg PO BID PRN PRN Reason: CONSTIPATION Heparin Sodium (Porcine) (Heparin Vial(*)) 5,000 units SUBCUT Q8HR REPLACED BY [facility] Last Admin: 06/19/18 05:58 Dose: 5,000 units Hydromorphone HCl (Dilaudid Inj*) 0.5 mg IV SLOW PU Q4H PRN PRN Reason: PAIN Levothyroxine Sodium (Synthroid Tab*) 75 mcg PO 0600 REPLACED BY [facility] Last Admin: 06/19/18 05:58 Dose: 75 mcg Meclizine HCl (Antivert Tab*) 25 mg PO TID PRN PRN Reason: DIZZINESS Midodrine (Midodrine (Nf)) 5 mg PO DAILY [facility]; Protocol Last Admin: 06/18/18 08:55 Dose: 5 mg Ondansetron HCl (Zofran Inj*) 4 mg IV Q4H PRN PRN Reason: NAUSEA/VOMITING Last Admin: 06/18/18 09:55 Dose: 4 mg Pantoprazole Sodium (Protonix Iv*) 40 mg IV Q24H REPLACED BY [facility] Last Admin: 06/18/18 08:57 Dose: 40 mg Pramipexole Dihydrochloride (Mirapex Tab*) 0.25 mg PO BEDTIME REPLACED BY [facility] Last Admin: 06/18/18 20:09 Dose: 0.25 mg Senna (Senokot Tab*) 1 tab PO BID PRN PRN Reason: CONSTIPATION Sevelamer Carbonate (Renvela Tab*) 2,400 mg PO TID REPLACED BY [facility] Last Admin: 06/18/18 20:16 Dose: Not Given Sucralfate (Sucralfate Susp) 1 gm PO AC REPLACED BY [facility] Last Admin: 06/18/18 17:23 Dose: 1 gm Vital Signs - 8 hr 06/19/18 03:22 Temperature 98.5 F Pulse Rate 59 Respiratory 16 Rate Blood Pressure 114/65 (mmHg) O2 Sat by Pulse 97 Oximetry Oxygen Devices in Use Now: None Appearance: alert, resting in bed watching tv, comfortable Eyes: No Scleral Icterus Ears/Nose/Mouth/Throat: NL Teeth, Lips, Gums Neck: NL Appearance and Movements; NL JVP Respiratory: Symmetrical Chest Expansion and Respiratory Effort, Clear to Auscultation Cardiovascular: RRR, - - blowing systolic murmur over the RUSB Abdominal: - - mildly tender to deep palpation in the epigastric area, no guarding or rebound Lymphatic: No Cervical Adenopathy Extremities: No Edema, - - RUE fistula Skin: No Rash or Ulcers Neurological: Alert and Oriented x 3 Result Diagrams: 06/19/18 06:14 06/19/18 06:14 Microbiology and Other Data: Microbiology 06/17/18 14:36 Urine Culture - Final Urine Assess/Plan/Problems-Billing Assessment: - Patient Problems (1) Epigastric abdominal pain Current Visit: Yes Status: Acute Code(s): R10.13 - EPIGASTRIC PAIN SNOMED Code(s): 66831373 Comment: Getting EGD this afternoon to evaluate for esophagitis, gastritis Repeat lactate and liver function have been normal No fever If EGD is unremarkable, would consider HIDA continue analgesia and antiemetics prn (2) ESRD (end stage renal disease) Current Visit: No Status: Acute Code(s): N18.6 - END STAGE RENAL DISEASE SNOMED Code(s): 06160196 Comment: lytes and volume okay HD yesterday was uneventful (3) CVA (cerebral vascular accident) Current Visit: No Status: Acute Code(s): I63.9 - CEREBRAL INFARCTION, UNSPECIFIED SNOMED Code(s): 922372688 Comment: in 2016 no residual deficits
[2018-06-19] MEDS: Sevelamer TAB* 800 MG PO SCH ×4 (08:54→22:12)
[2018-06-19] MEDS: Sucralfate SUSP 1 GM/10 ml 10 ML UDC PO SCH ×3 (09:00→17:51)
[2018-06-19] MEDS: Pantoprazole IV* 40 MG IV SCH (09:00)
[2018-06-19] MEDS: Allopurinol TAB* 100 MG PO SCH (09:00)
[2018-06-19] MEDS: CMCS: Midodrine (NF) 5 MG TAB PO SCH (09:02)
[2018-06-19] MEDS: Cinacalcet TAB* 30 MG PO SCH ×3 (09:04→22:05)
[2018-06-19] MEDS ORDERED: fentaNYL* 50 MCG/ML 2 ML VIAL (100 MCG VIAL) ONE (14:57)
[2018-06-19] MEDS ORDERED: Midazolam* 1 MG/ML 10 ML VIAL (10 MG) ONE (14:57)
--- NOTE | 2018-06-19 16:21 | PN ---
Hospitalist Progress Note Date of Service: 06/19/[address] Osullivan. EGD revealed gastritis, small bowel erosions, and esophagitis. It is possible that these findings explain her symptoms, so we will increase frequency of PPI, continue carafate, and await h. pylori testing, but we still consider biliary colic on the differential, as well as mesenteric ischemia. Check HIDA and if negative and pain persists, would consider CTA.
--- NOTE | 2018-06-19 18:24 | PN ---
Progress Note - Progress Note Date of Service: 06/19/18 - Gastroenterology Note: Patient seen and examined. Still having abdominal pain after eating food. No nausea/emesis. Good appetite. No rectal bleeding. Vital Signs: Temp Pulse Resp BP Pulse Ox 98.4 F 66 16 94/62 95 06/19/18 11:08 06/19/18 11:08 06/19/18 11:08 06/19/18 11:08 06/19/18 11:08 Physical Examination: GENERAL: AAOx3. NAD. CV: RRR. PULM: CTAB. ADBOMEN: Soft, non-tender, non-distended. Laboratory Last Values WBC 4.8 10^3/ul (3.5-10.8) 06/19/18 06:14 RBC 5.02 10^6/ul (4.00-5.40) 06/19/18 06:14 Hgb 15.8 g/dl (12.0-16.0) 06/19/18 06:14 Hct 47 % (35-47) 06/19/18 06:14 MCV 94 fL (80-97) 06/19/18 06:14 MCH 32 pg (27-31) H 06/19/18 06:14 MCHC 33 g/dl (31-36) 06/19/18 06:14 RDW 14 % (10.5-15) 06/19/18 06:14 Plt Count 198 10^3/ul (150-450) 06/19/18 06:14 MPV 8.6 um3 (7.4-10.4) 06/19/18 06:14 Neut % (Auto) 63.8 % (38-83) 06/19/18 06:14 Lymph % (Auto) 20.0 % (25-47) L 06/19/18 06:14 [place] % (Auto) 9.8 % (0-7) H 06/19/18 06:14 Eos % (Auto) 5.3 % (0-6) 06/19/18 06:14 Baso % (Auto) 1.1 % (0-2) 06/19/18 06:14 Absolute Neuts (auto) 3.1 10^3/ul (1.5-7.7) 06/19/18 06:14 Absolute Lymphs (auto) 1.0 10^3/ul (1.0-4.8) 06/19/18 06:14 Absolute Monos (auto) 0.5 10^3/ul (0-0.8) 06/19/18 06:14 Absolute Eos (auto) 0.3 10^3/ul (0-0.6) 06/19/18 06:14 Absolute Basos (auto) 0.1 10^3/ul (0-0.2) 06/19/18 06:14 Absolute Nucleated RBC 0 10^3/ul 06/19/18 06:14 Nucleated RBC % 0.1 06/19/18 06:14 INR (Anticoag Therapy) 0.91 (0.77-1.02) 06/19/18 06:14 Sodium 134 mmol/L (135-145) L 06/19/18 06:14 Potassium 3.9 mmol/L (3.5-5.0) 06/19/18 06:14 Chloride 92 mmol/L (101-111) L 06/19/18 06:14 Carbon Dioxide 31 mmol/L (22-32) 06/19/18 06:14 Anion Gap 11 mmol/L (2-11) 06/19/18 06:14 BUN 14 mg/dL (6-24) 06/19/18 06:14 Creatinine 3.20 mg/dL (0.51-0.95) H 06/19/18 06:14 Est GFR ( Amer) 16.6 (>60) 06/19/18 06:14 Est GFR (Non-Af Amer) 13.7 (>60) 06/19/18 06:14 BUN/Creatinine Ratio 4.4 (8-20) L 06/19/18 06:14 Glucose 79 mg/dL (70-100) 06/19/18 06:14 Lactic Acid 1.0 mmol/L (0.5-2.0) 06/18/18 10:36 Calcium 8.2 mg/dL (8.6-10.3) L 06/19/18 06:14 Magnesium 1.9 mg/dL (1.9-2.7) 06/19/18 06:14 Total Bilirubin 1.10 mg/dL (0.2-1.0) H 06/19/18 06:14 AST 21 U/L (13-39) 06/19/18 06:14 ALT 11 U/L (7-52) 06/19/18 06:14 Alkaline Phosphatase 187 U/L (34-104) H 06/19/18 06:14 C-Reactive Protein 1.15 mg/L (<8.01) 06/17/18 13:52 Total Protein 6.8 g/dL (6.4-8.9) 06/19/18 06:14 Albumin 4.1 g/dL (3.2-5.2) 06/19/18 06:14 Globulin 2.7 g/dL (2-4) 06/19/18 06:14 Albumin/Globulin Ratio 1.5 (1-3) 06/19/18 06:14 Lipase 22 U/L (11.0-82.0) 06/17/18 13:52 Urine Color Yellow 06/17/18 14:36 Urine Appearance Clear 06/17/18 14:36 Urine pH 9.0 (5-9) 06/17/18 14:36 Ur Specific [place] 1.008 (1.010-1.030) L 06/17/18 14:36 Urine Protein 2+(100 mg/dl) (Negative) A 06/17/18 14:36 Urine Ketones Negative (Negative) 06/17/18 14:36 Urine Blood Negative (Negative) 06/17/18 14:36 Urine Nitrate Negative (Negative) 06/17/18 14:36 Urine Bilirubin Negative (Negative) 06/17/18 14:36 Urine Urobilinogen Negative (Negative) 06/17/18 14:36 Ur Leukocyte Esterase Trace (Negative) A 06/17/18 14:36 Urine WBC (Auto) Trace(0-5/hpf) (Absent) 06/17/18 14:36 Urine RBC (Auto) Absent (Absent) 06/17/18 14:36 Ur Squamous Epith Cells Present (Absent) A 06/17/18 14:36 Urine Bacteria Absent (Absent) 06/17/18 14:36 Urine Glucose Negative (Negative) 06/17/18 14:36 88 yo female with ESRD on HD and 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 EGD done today with erosions in duodenum and moderate gastritis with distal esophagitis. On PPI daily and carafate BID. 1. Severe acute abdominal pain associated with meals ~EGD today showed few erosions in duodenal bulb, mild bile reflux, and moderate gastritis with distal esophagitis. Bx and clotest are pending. ~Increase PPI to BID for 6 weeks, then decrease to once daily. On Carafate BID. ~If pain is not improved by tomorrow and clotest is negative consider work-up with mesenteric ischemia due to severe pain after eating meals and mild weight loss. ~D/w Dr. Curtis, may order HIDA as well to check for GB function. Lily Osullivan D.O.
[2018-06-19] MEDS: Pramipexole TAB* 0.125 MG PO SCH (22:06)
--- NOTE | 2018-06-20 04:27 | PRO ---
CC: Dr. Malloy; Dr. Curtis * GASTROENTEROLOGY OPERATIVE REPORT: DATE OF PROCEDURE: 06/19/18 - ROOM #441 OPERATIVE PROCEDURE: Esophagogastroduodenoscopy to second portion of duodenum. CAT CRACKER OPERATOR: Lily Osullivan DO ANESTHESIA: 1. Midazolam 4 mg IV. 2. Fentanyl 37.5 mcg IV. 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 She denies NSAID use and her pain has been refractory to PPI and Carafate therapy over the last 2 days. PREOPERATIVE DIAGNOSIS: 1. Epigastric pain. POSTOPERATIVE DIAGNOSES: 1. Normal-appearing second portion of the duodenum. 2. A few small erosions in the bulb of the duodenum. 3. Mild bile reflux to the body of the stomach. 4. Moderate antral gastritis with CLOtest to rule out H. pylori. 5. Distal esophagitis with biopsies. 6. Normal mid and proximal esophagus. RECOMMENDATIONS: 1. We will follow up with CLOtest results and pathology results. 2. Given the patient's severity of abdominal pain, we would recommend increasing PPI to twice daily for 6 weeks, then decrease to once daily. 3. She is currently on the Carafate therapy twice daily. 4. If pain does not improve, other differentials to consider is possible mesenteric ischemia given significant abdominal pain shortly after eating meals as well as possible HIDA scan to further evaluate patient's pain. 5. Further recommendations will be provided as the patient's clinical course progresses. DESCRIPTION OF PROCEDURE: Esophagogastroduodenoscopy was explained in detail to the patient. The risks, benefits, complications, alternatives, and possibilities of missed lesions were explained and understood. Complications included, but were not limited to, reaction to anesthesia, aspiration, increased risk of bleeding, infection and perforation. All questions were answered. The patient demonstrated understanding of the conversation and informed consent was obtained. Next, the patient was brought to the endoscopy suite, placed in the left lateral recumbent position, where blood pressure, cardiac, and oxygen monitor were applied. The patient was found to be a fit candidate for moderate anesthesia. After adequate IV sedation was achieved, a bite-block was placed. Next, a standard adult endoscope was inserted per os under direct visualization to the first, second portion of the duodenum. There were a few erosions noted in the bulb of the duodenum, otherwise the second portion was normal. Further withdrawal of the endoscope into the gastric lumen revealed moderate erythema consistent with gastritis of the antrum. A CLOtest was performed to rule out H. pylori. On retroflexion, the patient has a normal gastric cardia sling. The remainder of the gastric lumen appeared unremarkable. Further withdrawal of the endoscope into the distal esophagus revealed Z-line at 32 cm from the incisors, there was significant erythema and exudates in the distal portion of the esophagus. This area was biopsied. The rest of the tubular esophagus was normal appearing. Air was then removed from the patient. Endoscope was removed from the patient. The patient tolerated the procedure well. There were no immediate complications. After a period of observation, the patient was transferred back the medical floor for further care. Thank you, Dr. Curtis, for allowing us to participate in the care of your patient. If you should have any further questions or concerns, please do not hesitate to contact us. [id number]/[facility] [place] [id number] [place]
[2018-06-20] MEDS: Levothyroxine TAB* 75 MCG TAB PO SCH (05:01)
[2018-06-20] MEDS: Heparin VIAL(*) 5000 UNITS/ML VIAL (FIVE THOUSAND) SUBCUT SCH (05:41)
[2018-06-20] MEDS: Sucralfate SUSP 1 GM/10 ml 10 ML UDC PO SCH (07:26)
[2018-06-20 07:36] VITALS: BP 91/59
[2018-06-20] MEDS: Pantoprazole IV* 40 MG IV SCH (08:59)
[2018-06-20] MEDS: Sevelamer TAB* 800 MG PO SCH (09:00)
[2018-06-20] MEDS: Allopurinol TAB* 100 MG PO SCH (09:01)
[2018-06-20] MEDS: CMCS: Midodrine (NF) 5 MG TAB PO SCH (09:01)
[2018-06-20] MEDS: Cinacalcet TAB* 30 MG PO SCH (09:02)
--- NOTE | 2018-06-20 14:38 | DS ---
CC: Ricki Malloy MD. * DISCHARGE SUMMARY: DATE OF ADMISSION: 06/17/18 DATE OF DISCHARGE: 06/20/18 PRIMARY CARE PROVIDER: Ricki Malloy MD. PRINCIPAL DISCHARGE DIAGNOSES: 1. Gastritis. 2. Esophagitis. 3. Bile reflux. 4. Thoracic and abdominal aneurysms. SECONDARY DISCHARGE DIAGNOSES: 1. End stage renal disease. 2. Hypertension. 3. History of atrioventricular block with a pacemaker. 4. History of cerebrovascular accident with no residual deficits. 5. History of right hip fracture, status post open reduction internal fixation. 6. Left carotid endarterectomy. 7. Hypothyroidism. 8. Osteoarthritis. PHYSICAL EXAMINATION: At the time of discharge, temperature 98.5, heart rate 67 , respiratory rate 16, pulse ox 93% on room air, blood pressure 91/59. General: Alert, well-appearing elderly female in no distress, sitting up in her chair. HEENT: Pupils are equal, round and reactive to light. No nystagmus. Oral mucosa is moist with no pharyngeal exudate or erythema. Neck: No JVP. No cervical or supraclavicular lymphadenopathy. Chest: Blowing systolic murmur over the right sternal border with radiation to the carotids. Irregular rhythm. Lungs: Clear bilaterally. Abdomen: With tenderness to deep palpation in the epigastric area. Negative Denney sign. Liver is nonpalpable. No guarding or rebound. Extremities: Right upper extremity fistula is present. No lower extremity edema. No ulcers, no rashes. DATA: An EGD done on 06/19/18, by Dr. Osullivan showed, 1. Normal appearing second portion of the duodenum. 2. A few erosions in the bulb of the duodenum. 3. Mild bile reflux to the body of the stomach. 4. Moderate antral gastritis. 5. Distal esophagitis. 6. Normal mid and proximal esophagus. DIAGNOSTIC IMAGING: Chest, abdomen and pelvis CTA, 1. Aneurysmal dilation upper lower thoracic and abdominal aorta with no acute aortic dissection. 2. Advanced emphysematous changes. 3. Cardiomegaly. 4. Atrophic kidneys. 5. Hysterectomy. HOSPITAL COURSE BY PROBLEM: 1. Severe gastritis. Ms. Tamez presented to the hospital with postprandial pain and abdominal imaging and laboratory data were unremarkable. So, Gastroenterology was consulted and an upper endoscopy was performed. It reveled gastritis and esophagitis. A CLOtest was negative. The etiology was this remains unclear. Ms. Tamez denied any NSAIDS and her H. pylori is negative. She is being treated with Protonix and Carafate and by the time of discharge, she is feeling better already. She was able to eat breakfast this morning without pain. She is instructed to continue Protonix and Carafate and I have made a followup appointment for her with Gastroenterology next week. 2. Abdominal and thoracic aortic aneurysms. This was incidentally found on a CTA at admission. The aneurysm measured 5.7 x 5.7 cm in maximum transverse dimension with no dissection. The aneurysm originates at the level of the distal thoracic aorta and extends to the mid abdominal aorta. This finding was discussed with her and should be followed serially with imaging by her primary care provider. 3. End-stage renal disease. She was continued on Saturday, Saturday, Saturday hemodialysis. Her volume and electrolytes remained stable throughout this admission. 4. Gout. She was continued on allopurinol. 5. Hypothyroidism. She was continued on Synthroid. Ms. Tamez is discharged on 06/20/18 at 11 a.m. with instructions to go to the dialysis clinic from here as they were unable to dialyze her inpatient this morning. She understands this plan and is agreeable. She is instructed to come back to the emergency department should she develop worsening abdominal pain, chest pain, nausea or vomiting, melena, hematochezia, diarrhea or any other new symptoms. [id number]/[facility] #: [id number] MTDD
== END 2018-06-20 11:45 | disposition home or self-care (01) | DRG 391 ==
LOC: ED 12:15 → MEDTELE 21:25
PROVIDERS: ADMIT Pediatrics; ATTEND Internal Medicine
PROC: 5A1D70Z Performance of Urinary Filtration, Intermittent, Less than 6 Hours Per Day (ICD-10-PCS; principal; 2018-06-18)
PROC: 0DB38ZX Excision of Lower Esophagus, Via Natural or Artificial Opening Endoscopic, Diagnostic (ICD-10-PCS; 2018-06-19)
PROC: 0DB68ZX Excision of Stomach, Via Natural or Artificial Opening Endoscopic, Diagnostic (ICD-10-PCS; 2018-06-19)
DX: K29.70 Gastritis, unspecified, without bleeding (principal); N18.6 End stage renal disease; I12.0 Hypertensive chronic kidney disease with stage 5 chronic kidney disease or end stage renal disease; K20.9 Esophagitis, unspecified; K21.9 Gastro-esophageal reflux disease without esophagitis; I71.4 Abdominal aortic aneurysm, without rupture; I71.2 Thoracic aortic aneurysm, without rupture; I44.30 Unspecified atrioventricular block; E03.9 Hypothyroidism, unspecified; M19.90 Unspecified osteoarthritis, unspecified site; M10.9 Gout, unspecified; E78.5 Hyperlipidemia, unspecified; G25.81 Restless legs syndrome; H91.90 Unspecified hearing loss, unspecified ear; Z99.2 Dependence on renal dialysis; Z95.0 Presence of cardiac pacemaker; Z86.73 Personal history of transient ischemic attack (TIA), and cerebral infarction without residual deficits; Z79.899 Other long term (current) drug therapy; Z88.8 Allergy status to other drugs, medicaments and biological substances; Z87.891 Personal history of nicotine dependence
CPT/HCPCS: 36415; 71275; 74174; 74176; 76705; 80053; 81003; 81015; 83605; 83690; 83735; 85025; 85610; 86140; 87077; 87086; 88305; 99156; 99157; 99284; A9270-GY; J1644; J2250; J2405; J3010; Q9967

== ENCOUNTER 2019-07-03 16:49 | Emergency (ER) | payer MEDICARE ==
--- NOTE | 2019-07-03 17:01 | ED ---
Neurological HPI - HPI Summary HPI Summary: Iesha Dick called at 1637 with 8 minutes ETA. Arrived in ED at 1648. Seen by provider at 1648. The patient is an 89 y/o F arriving to [facility] with a chief complaint of left- sided weakness starting at 1530. EMS reports that the patient had fallen secondary to the weakness, and she is now complaining of a headache as she had hit her head. Before the fall, she had some dizziness and bilateral hand numbness, and then developed weakness and numbness in the left side. She had some dysphasia and aphasia, but this has improved en route. She is still numb and weak on the left-side. She notes that she has hx of chronic renal failure and receives dialysis three times a week, with one treatment today. She denies any fever, chills, erythema of eyes, sore throat, CP, SOB, cough, abdominal pain , N/V, dysuria, hematuria, myalgia, back pain, edema, or rash. PMHx: blood transfusions, thyroid disease, anemia, CAD, HLD, HTN, pacemaker, diverticulosis , GI bleed, chronic renal failure with dialysis treatment, headaches. Former smoker, occasional EtOH, no substance use. Patient to CT at 1650. - History of Current Complaint Stated Complaint: IESHA DICK Time Seen by Provider: 07/03/19 16:51 Hx Obtained From: Patient, EMS Onset/Duration: Sudden Onset, Still Present Timing: Sudden Onset Onset Severity: Moderate Current Severity: Severe Neurological Deficit Location: LUE, LLE Headache Location: Diffuse (Right), Diffuse (Left) Pain Scale Used: 0-10 Numeric Character: Weak - left side, Numbness/Tingling - left side, Other: - aphasia, dysphasia Aggravating: Nothing Alleviating: Nothing Associated Signs and Symptoms: Positive: Headache, Weakness, Dizziness. Negative: Lightheadness, Nausea/Vomiting, Fever, Chest Pain, Shortness of Breath TPA Considered: Yes - patient within timeframe - Additional Pertinent History Primary Care Physician: [id number] - Allergy/Home Medications Allergies/Adverse Reactions: Allergies Allergy/AdvReac Type Severity Reaction Status Date / Time atorvastatin Allergy Muscle Ache Verified 06/17/18 13:18 lidocaine Allergy Rash Verified 06/17/18 13:18 prilocaine Allergy Rash Verified 06/17/18 13:18 PACEMAKER- NO MRIs Allergy PACEMAKER- Uncoded 05/17/17 09:10 NO MRIs PMH/Surg Hx/FS Hx/Imm Hx Endocrine/Hematology History: Reports: Hx Blood Transfusions, Hx Thyroid Disease - HYPOTHYROID, Hx Anemia Denies: Hx Anticoagulant Therapy, Hx Diabetes Cardiovascular History: Reports: Hx Coronary Artery Disease - HX OF CAROTID ENDARTERECTOMY-15 YRS AGO, Hx Hypercholesterolemia, Hx Hypotension, Hx Hypertension - ON MEDICATION FOR, Hx Pacemaker/ICD - DR. WAYNE, Other Cardiovascular Problems/Disorders - HX OF LOW HEART RATE Denies: Hx Deep Vein Thrombosis Respiratory History: Denies: Hx Asthma, Hx Chronic Obstructive Pulmonary Disease (COPD) GI History: Reports: Hx Diverticulosis, Hx Gastrointestinal Bleed History: Reports: Hx Chronic Renal Failure - Hemodialysis MWF, Hx Dialysis, Hx Renal Disease - renal failure, Other Problems/Disorders - RIGHT UPPER ARM fistula Musculoskeletal History: Reports: Hx Arthritis - "EVERY JOINT", Hx Gout Sensory History: Reports: Hx Cataracts, Hx Contacts or Glasses, Hx Glaucoma - BILATERAL Denies: Hx Hearing Aid Opthamlomology History: Reports: Hx Cataracts, Hx Contacts or Glasses, Hx Glaucoma - BILATERAL Neurological History: Reports: Hx Headaches Denies: Hx Dementia, Hx Seizures Psychiatric History: Denies: Hx Substance Abuse - Surgical History Surgery Procedure, Year, and Place: Tonsillectomy, Hysterectomy, Appendectomy. 2000 Left Carotid endardectomy. 2010 Peritoneal dialysis catheter. 2011 RUE dialysis fistula placed. REMOVAL OF A TUMOR FROM BUTTOCKS-SEVERAL YEARS AGO Hx Anesthesia Reactions: No Infectious Disease History: Reports: Hx Hepatitis - 60+ YEARS AGO, Hx Shingles Denies: Hx Human Immunodeficiency Virus (HIV) - Family History Known Family History: Positive: Hypertension, Diabetes - Social History Alcohol Use: Occasionally Alcohol Amount: 1-2 DRINKS Hx Substance Use: No Substance Use Type: Reports: None Hx Tobacco Use: Yes Smoking Status (MU): Former Smoker Type: Cigarettes Amount Used/How Often: 1 PPD X 50 YEARS Length of Time of Smoking/Using Tobacco: 50years Have You Smoked in the Last Year: No Review of Systems Negative: Fever, Chills Negative: Erythema Negative: Sore Throat Negative: Chest Pain Negative: Shortness Of Breath, Cough Negative: Abdominal Pain, Vomiting, Nausea Negative: dysuria, hematuria Positive: Other - NEGATIVE: back pain. Negative: Myalgia, Edema Negative: Rash Neurological: Other - POSITIVE: aphasia, dysphasia, fall secondary to weakness, dizziness Positive: Headache - secondary to fall, Weakness - left-sided, Numbness - both hands, left-side All Other Systems Reviewed And Are Negative: Yes Physical Exam - Summary Physical Exam Summary: Constitutional: Well-developed, Well-nourished, Alert. (-) Distressed Skin: Warm, Dry HENT: Normocephalic; Atraumatic Eyes: Conjunctiva normal Neck: Musculoskeletal ROM normal neck. (-) JVD, (-) Stridor, (-) Tracheal deviation Cardio: Rhythm regular, rate normal, Heart sounds normal; Intact distal pulses; The pedal pulses are 2+ and symmetric. Radial pulses are 2+ and symmetric. (-) Murmur Pulmonary/Chest wall: Effort normal. (-) Respiratory distress, (-) Wheezes, (-) Rales Abd: Soft. (-) Tenderness, (-) Distension, (-) Guarding, (-) Rebound Musculoskeletal: (-) Edema Lymph: (-) Cervical adenopathy Neuro: Alert, Oriented x3, Strength normal, Cranial nerves II-XII are grossly intact. (-) Dysmetria, (-) Nystagmus, (-) Ataxia by finger to nose testing, Left -sided amor neglect, left-sided hemiplegia, diminished sensation on the left side. GCS: 15, NIH: 17 (see scale) Psych: Mood and affect Normal Triage Information Reviewed: Yes Vital Signs Reviewed: Yes - Wilson Coma Scale Best Eye Response: 4 - Spontaneous Best Motor Response: 6 - Obeys Commands Best Verbal Response: 5 - Oriented Coma Scale Total: 15 Diagnostics - Laboratory Result Diagrams: 07/03/19 17:00 07/03/19 17:00 Lab Statement: Any lab studies that have been ordered have been reviewed, and results considered in the medical decision making process. - CT Brain CT CT Interpretation Completed By: Radiologist Summary of CT Findings: Impression: No acute intracranial pathology. Chronic small vessel ischemic change. ED physician has reviewed this radiology report. Head CTA CT Interpretation Completed By: Radiologist Summary of CT Findings: Impression: 1. Again noted is extensive atherosclerotic disease. 2. 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 3. Again noted is short segment 50% stenosis of the proximal right internal carotid artery. 4. There is moderate short segment stenosis of the proximal third of the basilar artery. 5. Emphysema. 6. Chronic small vessel ischemic change. 7. There are findings suggestive of chronic left subclavian vein occlusion with collateral formation. ED physician has reviewed this radiology report. Brain CT 2 CT Interpretation Completed By: Radiologist Summary of CT Findings: Impression: 1. Right sided subarachnoid hemorrhage, not present on the comparison study. 2. Small right parieto-occipital subdural hematoma, not present on the comparison study. 3. Possible subdural hematoma overlying the tentorium, not present on the comparison study. 4. Larger right extracranial hematoma. ED physician has reviewed this radiology report. Cervical Spine CT CT Interpretation Completed By: Radiologist Summary of CT Findings: Impression: 1. No acute fracture, subluxation, or destructive osseous lesion. 2. Multilevel degenerative disc and joint disease. ED physician has reviewed this radiology report. - EKG 1710 Cardiac Rate: Other Rate - 60 bpm Summary of EKG Findings: Paced rhythm at 60 bpm. No STEMI. NIH Scale - NIH Scale Level of Consciousness: Alert/Keenly Responsive Ask Patient the Month and His/Her Age: Both Correct Ask Pt to Open/Close Eyes and Chiller Hand/Release Non-Paretic Hand: Both Correctly Best Gaze (Only Horizontal Eye Movement): Partial Gaze Palsy Visual Field Testing: Complete Hemianopia Facial Paresis-Pt to Smile & Close Eyes or Grimace Symmetry: Normal/Symmetrical Motor Function - Right Arm: No Drift-Holds 10 Seconds Motor Function - Left Arm: No Movement Motor Function - Right Leg: No Drift-Holds 10 Seconds Motor Function - Left Leg: No Movement Limb Ataxia-Must be out of Proportion to Weakness Present: Present in Two Limbs Sensory (Use Pinprick to Test Arms/Legs/Trunk/Face): Normal Best Language (Describe Picture, Name Items): Some Loss Dysarthria (Read Several Words): Slurs Some Words Extinction and Inattention: Profound Amor-Inattention Total Score: 17 Re-Evaluation - Re-Evaluation First Eval Re-Evaluation Time: 17:40 Comment: I spoke with the family of the patient including results thus far and admission. Second Eval Re-Evaluation Time: 19:40 Comment: The patient has a worsening JOYCE; we will order Reglan. Third Eval Re-Evaluation Time: 20:00 Comment: Patient reports difficulty breathing after getting Reglan despite 100% O2 sat. Reports she is anxious. Now moving left side but still has a right- sided JOYCE and feels like she wants to crawl out of her skin. I believe she is having akathisia secondary to Reglan. Fourth Eval Re-Evaluation Time: 20:30 Comment: I discussed transfer to [place] via helicopter. Fifth Eval Re-Evaluation Time: 20:40 Comment: Patient is awake and moving left side. Course/Dx - Course Course Of Treatment: Iesha Dick called at 1637 with 8 minutes ETA. Arrived in ED at 1648. Seen by provider at 1648. Patient is an 89 y/o F arriving by ambulance with cc of sudden onset left-sided weakness and numbness occurring after getting home from dialysis and is still present, causing her to fall and hit her head resulting in a JOYCE. Before falling, she reports dizziness and numbness in both hands. EMS reports aphasia and dysphasia that has improved. Denies CP and back pain. PMHx: blood transfusions, thyroid disease, anemia, CAD, HLD, HTN , pacemaker, diverticulosis, GI bleed, chronic renal failure with dialysis treatment, headaches. Patient to CT at 1650. Per Dr. Jorge, the patient had dialysis approximately three hours [employer]YOR. Upon physical exam, the patient exhibits left-sided amor neglect, left-sided hemiplegia, and diminished sensation on the left side. NIH: 17 (see scale). Blood work reveals MCH of 32, abs monos of 0.9, APTT of 25.9, chloride of 99, creatinine of 2.79, BUN/ Creatinine ratio of 4.3, glucose of 128, calcium of 8.5, and alkaline phosphatase of 200. I spoke with Dr. Jorge, urology, at 1700, and she states that the patient can get CT with contrast. She is able to get dialysis as normal on Friday 07/06. Brain CT impression reveals no acute intracranial pathology with chronic small vessel ischemic change. EKG at 1710 reveals paced rhythm at [address] Burgos, neurology, came to evaluate the patient in the ED at 1716. Patient back to CT at 1722. Head CTA with contrast Impression: 1. Again noted is extensive atherosclerotic disease. 2. 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 3. Again noted is short segment 50% stenosis of the proximal right internal carotid artery. 4. There is moderate short segment stenosis of the proximal third of the basilar artery. 5. Emphysema. 6. Chronic small vessel ischemic change. 7. There are findings suggestive of chronic left subclavian vein occlusion with collateral formation. Dr. Wilfredo Palencia, ICU vp celebrity services, is aware of the patient's case at 1815. She is TPA consideered. I was sedating a patient in MRI during the risk stratification for TPA and I was not directly involved with family for TPA. Patient dx of ischemic stroke. Patient given Reglan in the ED for headache. She will go back to CT after TPA. After the patient received Reglan, she said that she is having difficulty breathing, but her oxygen is 100% . She reports she is anxious. She is now moving the left side. She still has a right sided headache and feels like she wants to crawl out of her skin. I believe she is having akathisia secondary to Reglan. Repeat Brain CT Impression : 1. Right sided subarachnoid hemorrhage, not present on the comparison study. 2. Small right parieto-occipital subdural hematoma, not present on the comparison study. 3. Possible subdural hematoma overlying the tentorium, not present on the comparison study. 4. Larger right extracranial hematoma. Cervical Spine CT Impression: 1. No acute fracture, subluxation, or destructive osseous lesion. 2. Multilevel degenerative disc and joint disease. At this time , Dr. Palencia suggests transfer. Family is agreeable to transfer to [facility] via helicopter. Dx also includes subdural hemorrhage, subarachnoid hemorrhage. 90 minutes CCT. at time of xfer I did direct air medical to give 500 mL NS for BP in the 90s systolic. pt hemiplegia significantly improved with tpa, did develop hemorrhage which was heralded by severe headache. AAOx3 at time of transport - Diagnoses Provider Diagnoses: Ischemic stroke, Subdural hemorrhage, Subarachnoid hemorrhage During the Visit The Following Alert/Code Occurred: Iesha De Jesus - called at 1637 with 8 minutes ETA - Physician Notifications Discussed Care Of Patient With: Ricki Burgos - NEUROLOGY Time Discussed With Above Provider: 17:00 Instructed by Provider To: Transfer - Dr. Jorge reports that the patient can get CT with contrast. She is able to get dialysis as normal on Saturday. At 1716, Dr. Burgos, neurology, came to the ED to evaluate the patient. I spoke with Dr. Wilfredo Palencia, internal medicine, is aware of the patient at 1815. He recommends transfer with CT results. Reason For Transfer: Patient not appropriate for [facility]. - Critical Care Time Critical Care Time: 75-104 min - 90 minutes Discharge - Sign-Out/Discharge Documenting (check all that apply): Patient Departure - Patient will be transferred to [facility] via helicopter. Patient Received Moderate/Deep Sedation with Procedure: No - Discharge Plan Condition: Fair Disposition: TRANS HIGHER LVL OF CARE FAC Referrals: Gama GARCIA,Ricki Sabillon [Primary Care Provider] - - Billing Disposition and Condition Condition: FAIR Disposition: Trans Higher Lvl of Care Fac - Attestation Statements Document Initiated by Scribe: Yes Documenting Scribe: Kasia Lott Provider For Whom Dea is Documenting (Include Credential): Dr. Sameer Francis MD Scribe Attestation: I, sully Jimenezibed for Dr. Sameer Francis MD on 07/03/19 at 2107. Scribe Documentation Reviewed: Yes Provider Attestation: The documentation as recorded by the Kasia friedman accurately reflects the service I personally performed and the decisions made by me, Dr. Sameer Francis MD Status of Scribe Document: Viewed
[2019-07-03 17:17] LABS: ABS Basophils 0.1 10^3/ul (0-0.2); ABS Eosinophils 0.2 10^3/ul (0-0.6); ABS Lymphocytes 1.2 10^3/ul (1.0-4.8); ABS Monocytes 0.9 10^3/ul (0-0.8); ABS Neutrophils 5.4 10^3/ul (1.5-7.7); Eosinophil % 2.4 %; Hematocrit 39 % (35-47); Hemoglobin 13.1 g/dL (12.0-16.0); Lymphocyte % 15.7 %; Mean Corpuscular HGB Conc 33 g/dL (31-36); Mean Corpuscular Hemoglobin 32 pg (27-31); Mean Corpuscular Volume 95 fL (80-97); Mean Platelet Volume 8.1 fL (7.4-10.4); Platelet Count 252 10^3/uL (150-450); Red Blood Count 4.14 10^6 /uL (3.70-4.87); Red Cell Distribution Width 14 % (10-15); White Blood Count 7.9 10^3/uL (3.5-10.8)
[2019-07-03 17:25] LABS: INR 1.02 (0.82-1.09)
[2019-07-03 17:26] LABS: Activated Partial Thrombo Time 25.9 seconds (26.0-38.0)
[2019-07-03] MEDS ORDERED: Iodixanol* (CONTRAST) 320 MG/ML 100 ML SDV IV ONE (17:29)
[2019-07-03 17:32] LABS: Albumin 4.1 g/dL (3.2-5.2); Albumin/Globulin Ratio 1.8 (1-3); BUN/Creatinine Ratio 4.3 (8-20); Calcium 8.5 mg/dL (8.6-10.3); EGFR African American 19.4 (>60); Globulin 2.3 g/dL (2-4); HDL Cholesterol 62.1 mg/dL; Potassium 3.9 mmol/L (3.5-5.0); Total Bilirubin 0.8 mg/dL (0.2-1.0); Total Protein 6.4 g/dL (6.4-8.9)
[2019-07-03 17:33] LABS: Troponin I 0.02 ng/mL (<0.04)
[2019-07-03] MEDS ORDERED: Alteplase* 100 MG VIAL ONE (17:47)
[2019-07-03] MEDS ORDERED: ALTEPLASE IV ONE (17:48)
[2019-07-03] MEDS ORDERED: Alteplase* 100 MG in PREMIX* 100 ML IV ONE (17:48)
[2019-07-03] MEDS: Alteplase* 100 MG VIAL IV ONE ×2 (17:58→18:51)
[2019-07-03] MEDS ORDERED: Acetaminophen TAB* 325 MG PO ONE (18:23)
[2019-07-03] MEDS ORDERED: Acetaminophen IV 1GM/100ML * 100 ML IVPB ONE (18:27)
[2019-07-03] MEDS ORDERED: Ondansetron INJ* 2 MG/ML VIAL IV PRN (19:03)
[2019-07-03] MEDS ORDERED: Acetaminophen TAB* 325 MG PO PRN (19:03)
[2019-07-03] MEDS ORDERED: Metoclopramide IV* 5 MG/ML 2 ML VIAL IV SLOW PU ONE (19:25)
[2019-07-03] MEDS ORDERED: NS 0.9% 500 ML* 500 ML IV ONE (19:25)
[2019-07-03] MEDS ORDERED: LORazepam INJ* 2 MG/ML 1 ML VIAL IV PUSH ONE ×2 (20:01→20:33)
[2019-07-03] MEDS ORDERED: diPHENhydraMINE IV* 50 MG/ML 1 ml VIAL (BENADRYL) SLOW PUSH ONE (20:01)
[2019-07-03] MEDS ORDERED: Lorazepam PYXIS KEY PRN ×2 (20:01→20:33)
--- NOTE | 2019-07-03 20:22 | CONS ---
CC: Dr. Junior Cleary * NEUROLOGY CONSULTATION: DATE OF CONSULT: 07/03/19 LOCATION: She is in the emergency room to be admitted. REFERRING PROVIDER: Sameer Francis MD. CHIEF COMPLAINT: Left-sided weakness. HISTORY OF PRESENT ILLNESS: Brigid Tamez is an 89-year-old right-handed woman who called her son and [id number] who live across the street at about 3:50 stating that she was on the floor and could not get up. They went to cross the street and she was on the floor with left-sided weakness. They called an ambulance. She was brought in to the emergency room where she had a left hemiparesis and right gaze preference. She was taken to the CT scan and a code mccoy was called. Her CT of the brain revealed some patchy hypodensities consistent with chronic ischemic changes, but no evidence of acute infarction or hemorrhage. I was paged at 5 p.m. I had arrived a little before 5:15 to evaluate the patient. Initially in the emergency room, she had a right gaze preference, which was pretty severe, left hemianopia and no movement of the left arm and leg. She has loss of pin discrimination diffusely on the left side. She was aware of her deficits and was not aphasic. She was able to state that she had been in dialysis and she thinks that she got home at about 3. She could not state when she fell. She was sent off for a CT angiogram, which was done and reveals a multifocal atherosclerotic disease, but no significant lesions in the right carotid and middle cerebral artery territory that would be amenable to an endovascular procedure. I discussed the risks and benefits of tPA with Brigid, her son and her [id number] who is her healthcare proxy. I explained that the patients who receive tPA having 20% to 30% chance of good outcome with a little to mild neurological deficits, but there is approximately 6% risk of intracranial hemorrhaging. I said that the risk was higher in older people. She is not on any anticoagulants. She has never had a stroke before clinically. She had dialysis earlier today. We were able to ascertain that her dialysis started about 9:30 and was finished by about 1 p.m. Brigid states that the flag car driver forgot about her, was late, and did not pick her up until about 2. She was able to drive her scooter into her home when she returned home and it was not until later that she fell. When she fell, she banged her head, but she did not lose consciousness. There has been no recent surgeries or trauma. There is no history of intracranial hemorrhage. There is no history of intestinal bleeding or genitourinary bleeding. She does have a history of epistaxis when she was on anticoagulants. 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 MEDICATIONS: At home consist of: 1. Midodrine 5 mg t.i.d. with dialysis. 2. Pramipexole 0.25 mg 1 to 2 tablets before bedtime. 3. Synthroid 75 mcg p.o. daily. 4. Allopurinol 100 mg p.o. daily. 5. Lasix 80 mg p.o. daily. 6. Sensipar 30 mg p.o. t.i.d. p.c. 7. Metolazone 5 mg p.o. daily. 8. Lasix 80 mg p.o. daily. ALLERGIES: She is allergic to ATORVASTATIN, LIDOCAINE, and PRILOCAINE. REVIEW OF SYSTEMS: Notable for a headache since she banged her head. She states normally she does not get headaches. There is no history of seizures. She has had an endarterectomy, but both she and her family state there is no history of stroke. She lives in her own home. She gets around in a 3-wheeled scooter outside of the home and a walker inside the home. She has a very bad left knee. She quit smoking about 20 years ago. She has 1 alcoholic beverage per evening. Her son lives across the street. Her memory is still pretty good. PHYSICAL EXAMINATION: On examination, she is fairly well hydrated and well nourished. Temperature is 100/60, heart rate is 60 and paced on the monitor, respiratory rate is 16, and oxygen saturation is 96% on supplemental oxygen. Heart reveals a soft systolic murmur, loudest at the upper right sternal border. There is a left endarterectomy scar. I do not hear any cervical bruits. Her lungs are clear anterolaterally. She has a bruise on the right temporoparietal area and a bigger hematoma more over the parietal area. There are no lacerations. Her neck is supple. Oral mucosa is moist and there is no oral trauma. Neurological Exam: Pupils react equally from 3 to 2 mm. She has a dense left homonymous hemianopia. Initially, she has a pretty forced right gaze preference , but over the course of the evaluation of about 20 to 30 minutes, she is able to track to the left before giving her tPA. She still has a partial right gaze preference. She has mild flattening of the right nasolabial fold. She has mild dysarthria. She has absent pin discrimination in the left side of the face , normal in the right. She has decreased pin discrimination in the left arm and leg and absent light touch in the left arm and leg. Initially, she has minimal movement of the left arm and leg, but as the minutes go by she has some movement against gravity, but not fully in the left arm and leg. She has normal strength in the right arm and leg. She is not able to perform any type of sgzwle-tl-tomt or heel- to-beltrán maneuver on the left side. She has no tremor on the right side. She has fluent language. She is able to provide a coherent history and answer questions. NIH score is 10. DIAGNOSTIC STUDIES/LAB DATA: Laboratory data is notable for a normal CBC today including platelet count, normal INR at 1.02 and PTT is mildly elevated at 25.9. Chemistry profile is notable for a creatinine of 2.79, which is similar to historical values. Glucose is 128. Cholesterol this evening is [address] scan of the brain is reported in the history of present illness. CT angiogram report is reviewed and also discussed with Dr. Patiño. IMPRESSION AND PLAN: Impression is that of a right middle cerebral artery syndrome. There is some spontaneous improvement, but still has an NIH score of 10 just prior to a 3-hour time window. I reviewed the potential risks and benefits of tPA with Ms. Tamez, but also with her son and [id number] who is her healthcare proxy. They were given the opportunity to answer questions. We elected to proceed with tPA. She was given a bolus just prior to the 3-hour jonathan. The infusion is still infusing. She will be admitted to the intensive care unit as per tPA protocol. She should not receive any aspirin or antiplatelet agents for at least 24 hours. She has a pacemaker and she will not be able to get an MRI scan, but we will plan on a CT scan 24 hours after the infusion. She will be monitored in the intensive care unit. Currently, her blood pressure is not elevated, does not require any intervention. Her lipid profile is in a good place in spite of not being on statins. Dr. Lalo Barlow will be on-call as of this evening and will follow up on Ms. Tamez over the weekend. TIME SPENT: A total of an hour and 40 minutes were spent in the emergency room directly involved in Ms. Tamez's care continuously. [id number]/CPS #: [id number]
--- NOTE | 2019-07-03 20:55 | HP ---
CC: Dr. Burgos; Dr. Ricki Malloy HISTORY AND PHYSICAL: DATE OF ADMISSION: 07/03/19 PRIMARY CARE PROVIDER: Dr. Ricki Malloy. CHIEF COMPLAINT: Dizziness and bilateral arm numbness and weakness, status post fall. SUBJECTIVE: This is an 89-year-old female who was in her usual state of health. She did receive her dialysis today at the outpatient dialysis unit. Shortly after she arrived home, she started feeling some dizziness and before she was able to reach a sitting position, she started leaning forward and she tried to get herself from falling on the floor. She stated her hand were not strong enough to grasp her or catch herself from falling. She landed on her right side of the body, hitting the right forehead. She was able to crawl on the floor, called for family member, who were able to summon for help. She was brought into the ER and on arrival, she was found to have bilateral upper arm and lower extremity weakness with subjective numbness and severe headache. She did have some mild expressive aphasia as well. On evaluation in the ER, her NIH score on triage was 10. With onset of symptom within the 3 hours window for tPA , neurology consultation was obtained. She had the onset of symptoms at 3:30. She arrived to the emergency room at 4:48 and she was back from the CAT scan at 5:22 and tPA initiated at 5:57. The patient was seen and evaluated by me in the emergency room. She is complaining of severe headache, which is similar to her headache from prior of the tPA. She is complaining of severe headache on the right frontal. She has ice pack in place, wrapped with pressure dressing. Her speech seems to have improved, but she is still complaining of numbness bilateral hand with some improvement of movement. She denies any chest pain. No blurry vision. She is complaining of severe 10/10 headache. PAST MEDICAL HISTORY: Significant for: 1. End-stage renal disease, on dialysis 3 times a week. 2. Hypothyroidism. 3. Coronary artery disease. 4. Carotid endarterectomy. 5. Hyperlipidemia. 6. Hypertension. 7. Permanent pacemaker. 8. DVT. 9. History of GI bleed from diverticulosis. The GI bleed is not remotely. MEDICATIONS: She is on, 1. Allopurinol 100 daily. 2. Lasix 80 daily. 3. Levothyroxine 75 mcg daily. 4. Midodrine 15 mg daily. 5. Mirapex 0.25 mg at bedtime. 6. Renvela 2400 t.i.d. ALLERGIES: She is allergic to ATORVASTATIN, LIDOCAINE, PRILOCAINE. FAMILY HISTORY: Significant for diabetes and hypertension. SOCIAL HISTORY: She drinks 1 to 2 drink a day. Former smoker, quit 50 plus years. REVIEW OF SYSTEMS: As per HPI, remaining otherwise negative. PHYSICAL EXAMINATION GENERAL: She is awake, alert, oriented, in mild to moderate distress secondary to her headache. She does have right frontal hematoma with ice pack and pressure dressing wrapped around. VITAL SIGNS: Blood pressure 98/56, pulse 60, temperature 97.8, respiratory rate 16, satting 96% on 2 L. HEENT: Her extraocular muscles intact. NECK: Supple. Positive left carotid endarterectomy scar. I do not appreciate any cervical point tenderness. CARDIOVASCULAR: S1, S2. Positive for murmur. Paced rhythm. She does have left anterior chest wall pacemaker. ABDOMEN: Positive bowel sounds. Soft, nontender. EXTREMITIES: No pedal edema. She is having 3/5 bilateral upper and lower extremities and 2/5 bilateral lower extremity power. NEUROLOGIC: She is alert, oriented and she has no evidence of remnant of dysphasia. DIAGNOSTIC STUDIES/LAB DATA: Her labs, white count 7, hemoglobin 13, hematocrit 39, platelets 252. INR 1. Chemistries: Sodium 137, potassium 3.9, chloride 99, BUN 12, creatinine 2.7, glucose 128, lactic acid 1.9, calcium 8.5. AST 24, ALT 17, troponin 0.02. Triglycerides 88, cholesterol 140, LDL 60. EKG, paced rhythm, atrioventricular dual paced. IMPRESSION AND PLAN: This is an 89-year-old female who comes in with transient ischemic attack, possibly cerebrovascular accident; status post fall secondary to dizziness with known history of end-stage renal disease, on dialysis; hypertension and hypotension at times; hypothyroidism; coronary artery disease; status post permanent pacemaker; carotid endarterectomy, Pending repeat head post tPA will be admitted for ICU status post tPA. 1. Transient ischemic attack, rule out cerebrovascular accident, status post tPA. Will admit to ICU pending her repeat CT of head, ordered to be done stat in the ER due to acute worsening headache post tPA - Neuro check q.1 hour. - If repeat head CT negative will plan on repeat the CT of the head in 24 hours tomorrow around 5 p.m. - Neurology consultation was obtained. The patient was evaluated by Dr. Burgos in the ER. - We will hold off on aspirin for now, it probably can be resumed 24 hours later. - 2D echo - physical therapy, occupational therapy, speech consult tomorrow. 2. For her headache, worse post tPA, we will place her on Tylenol. - We will avoid any NSAID or any narcotics, so it does not alter our neurologic assessment. - Repeat CT head ordered now in ER Post tPA to ensure no active intracranial bleed 3. End-stage renal disease, dialysis next time will be on Saturday. 4. Hypothyroidism. Continue levothyroxine 75. We will check TSH. 5. Restless legs syndrome. Continue Mirapex 0.125 mg daily. 6. Code status. Full code. 7. DVT prophylaxis. CHANA garcía. Avoid antiplatelet product at this time due to her recent tPA. [id number]/[facility] #: [id number] QUINN
[2019-07-03] MEDS ORDERED: Pramipexole TAB* 0.125 MG PO SCH (21:00)
[2019-07-03] MEDS ORDERED: Sevelamer TAB* 800 MG PO SCH (21:00)
[2019-07-03 21:16] VITALS: BP 91/61
[2019-07-04] MEDS ORDERED: Allopurinol TAB* 100 MG PO SCH (09:00)
[2019-07-04] MEDS ORDERED: Furosemide TAB* 40 MG PO SCH (09:00)
[2019-07-04] MEDS ORDERED: Levothyroxine TAB* 75 MCG TAB PO SCH (09:00)
== END 2019-07-03 21:04 | disposition short-term general hospital (02) ==
LOC: ED 16:49
DX: I63.9 Cerebral infarction, unspecified (principal); I62.00 Nontraumatic subdural hemorrhage, unspecified; I60.9 Nontraumatic subarachnoid hemorrhage, unspecified; E07.9 Disorder of thyroid, unspecified; D64.9 Anemia, unspecified; I25.10 Atherosclerotic heart disease of native coronary artery without angina pectoris; E78.00 Pure hypercholesterolemia, unspecified; I12.0 Hypertensive chronic kidney disease with stage 5 chronic kidney disease or end stage renal disease; N18.6 End stage renal disease; Z99.2 Dependence on renal dialysis; Z87.891 Personal history of nicotine dependence; Z95.0 Presence of cardiac pacemaker; Z88.4 Allergy status to anesthetic agent; Z88.8 Allergy status to other drugs, medicaments and biological substances
CPT/HCPCS: 36415; 70450; 70496; 70498; 72125; 80053; 80061; 83605; 84484; 85025; 85610; 85730; 93005; 96365; 96366; 96375; 96376; 99285; J1200; J2765; J2997; Q9967

== ENCOUNTER 2019-07-18 23:50 | Emergency (ER) | payer MEDICARE ==
--- NOTE | 2019-07-19 00:31 | ED ---
Lower Extremity - HPI Summary HPI Summary: This patient is an 89 year old female presenting to [facility] with a chief complaint of left ankle pain. The patient states she had a CVA 2-3 weeks ago and today has tightness/numbness in her left ankle. The stroke affected her left side and has weakness on that side of her body as a result of her stroke, but went through rehabilitation in [place] and she is slowly regaining strength. - History of Current Complaint Chief Complaint: EDExtremityLower Stated Complaint: L FOOT NUMBNESS PER PT Time Seen by Provider: 07/19/19 00:23 Hx Obtained From: Patient Pain Intensity: 0 Pain Scale Used: 0-10 Numeric - Allergies/Home Medications Allergies/Adverse Reactions: Allergies Allergy/AdvReac Type Severity Reaction Status Date / Time atorvastatin Allergy Muscle Ache Verified 07/19/19 00:00 lidocaine Allergy Rash Verified 07/19/19 00:00 prilocaine Allergy Rash Verified 07/19/19 00:00 PACEMAKER- NO MRIs Allergy PACEMAKER- Uncoded 07/19/19 00:00 NO MRIs Home Medications: Home Medications Acetaminophen TAB* [Tylenol TAB*] 650 mg PO Q6HR PRN 07/19/19 [History Confirmed 07/19/19] Aspirin TAB* [Aspirin 325 MG TAB*] 325 mg PO DAILY 07/19/19 [History Confirmed 07/19/19] Cinacalcet TAB* [Sensipar TAB*] 30 mg PO DAILY 07/19/19 [History Confirmed 07/19] Docusate CAP* [Colace Cap*] 100 mg PO BID 07/19/19 [History Confirmed 07/19/19] Folic Acid/Vit B Complex and C [Nephro-Eddi Tablet] 1 tab PO DAILY 07/19/19 [ History Confirmed 07/19/19] Folic Acid/Vit B Complex and C [Marry-Eddi Tablet] 1 tab PO DAILY 07/19/19 [ History Confirmed 07/19/19] Metolazone TAB* [Zaroxolyn TAB*] 5 mg PO DAILY 07/19/19 [History Confirmed 07/19] Rosuvastatin Calcium 20 mg PO DAILY 07/19/19 [History Confirmed 07/19/19] Senna TAB 8.6 mg* [Senokot 8.6 mg TAB*] 1 tab PO BEDTIME 07/19/19 [History Confirmed 07/19/19] Vitamin D TAB* 50,000 units PO WEEKLY 07/19/19 [History Confirmed 07/19/19] PMH/Surg Hx/FS Hx/Imm Hx Endocrine/Hematology History: Reports: Hx Blood Transfusions, Hx Thyroid Disease - HYPOTHYROID, Hx Anemia Denies: Hx Anticoagulant Therapy, Hx Diabetes Cardiovascular History: Reports: Hx Coronary Artery Disease - HX OF CAROTID ENDARTERECTOMY-15 YRS AGO, Hx Hypercholesterolemia, Hx Hypotension, Hx Hypertension - ON MEDICATION FOR, Hx Pacemaker/ICD - DR. WAYNE, Other Cardiovascular Problems/Disorders - HX OF LOW HEART RATE Denies: Hx Deep Vein Thrombosis Respiratory History: Denies: Hx Asthma, Hx Chronic Obstructive Pulmonary Disease (COPD) GI History: Reports: Hx Diverticulosis, Hx Gastrointestinal Bleed History: Reports: Hx Chronic Renal Failure - Hemodialysis MWF, Hx Dialysis, Hx Renal Disease - renal failure, Other Problems/Disorders - RIGHT UPPER ARM fistula Musculoskeletal History: Reports: Hx Arthritis - "EVERY JOINT", Hx Gout Sensory History: Reports: Hx Cataracts, Hx Contacts or Glasses, Hx Glaucoma - BILATERAL Denies: Hx Hearing Aid Opthamlomology History: Reports: Hx Cataracts, Hx Contacts or Glasses, Hx Glaucoma - BILATERAL Neurological History: Reports: Hx Headaches Denies: Hx Dementia, Hx Seizures Psychiatric History: Denies: Hx Substance Abuse - Surgical History Surgery Procedure, Year, and Place: Tonsillectomy, Hysterectomy, Appendectomy. 2000 Left Carotid endardectomy. 2010 Peritoneal dialysis catheter. 2011 RUE dialysis fistula placed. REMOVAL OF A TUMOR FROM BUTTOCKS-SEVERAL YEARS AGO Hx Anesthesia Reactions: No Infectious Disease History: No Infectious Disease History: Reports: Hx Hepatitis - 60+ YEARS AGO, Hx Shingles Denies: Hx Human Immunodeficiency Virus (HIV), Traveled Outside the [place] in Last 30 Days - Family History Known Family History: Positive: Unknown, Hypertension, Diabetes - Social History Alcohol Use: Occasionally Alcohol Amount: 1-2 DRINKS Hx Substance Use: No Substance Use Type: Reports: None Hx Tobacco Use: Yes Smoking Status (MU): Former Smoker Type: Cigarettes Amount Used/How Often: 1 PPD X 50 YEARS Length of Time of Smoking/Using Tobacco: 50years Have You Smoked in the Last Year: No Review of Systems Negative: Fever Positive: Other - Left ankle tightness Positive: Weakness, Numbness All Other Systems Reviewed And Are Negative: Yes Physical Exam - Summary Physical Exam Summary: Appearance: Well appearing, no pain distress Skin: warm, dry, reflects adequate perfusion Head/face: normal Eyes: EOMI, JOELLEN ENT: normal Neck: supple, non-tender Respiratory: CTA, breath sounds present Cardiovascular: RRR, pulses symmetrical. Abdomen: non-tender, soft Musculoskeletal: normal, strength/ROM intact Neuro: motor 4/5 lf side, A&Ox3 Triage Information Reviewed: Yes Vital Signs On Initial Exam: Initial Vitals Temp Pulse Resp BP Pulse Ox 97.5 F 66 16 106/73 98 07/18/19 23:57 07/18/19 23:57 07/18/19 23:57 07/18/19 23:57 07/18/19 23:57 Vital Signs Reviewed: Yes Diagnostics - Vital Signs Vital Signs Temp Pulse Resp BP Pulse Ox 07/19/19 00:14 61 10 119/81 97 07/18/19 23:57 97.5 F 66 16 106/73 98 - Laboratory Result Diagrams: 07/19/19 00:50 07/19/19 00:50 Lab Statement: Any lab studies that have been ordered have been reviewed, and results considered in the medical decision making process. - CT Brain CT Interpretation Completed By: Radiologist Summary of CT Findings: 1. There is possible slight increase in acute subdural hematoma along the right tentorium cerebella which previously measured for aspect 5 mm thickness and currently measures approximately 7 mm thickness. The previously seen right subdural hematoma along the right cerebral convexity has evolved to a predominately chronic subdural hemaotma that measures 8 mm thickness which is of predominately CSF attenuation. 2. No significant mass effect or midline shift. 3. There is stable age-related diffuse cerebral volume loss and chronic microvascular ischemic disease. 4. There is decerased size of right parietal scalp contusion. ED Provider has reviewed this report. Lower Extremity Course/Dx - Course Course Of Treatment: This patient is an 89 year old female presenting to [facility] with a chief complaint of left ankle numbness/tightness. Brain CT revealed subdural hematoma. Spoke with Dr. Almanzar, Neurology, who stated the subdural hematoma would not be causing the left ankle symptoms. He recommended the patient be admitted to the hospital and Neurology will see the patient once admitted. Dr. Lyons, hospitalist, accepted the patient for admission. This plan was discussed with the patient and she was agreeable with this plan. - Diagnoses Differential Diagnosis/HQI/PQRI: Positive: Other - cva/intracranial bleeding Provider Diagnoses: Subdural hematoma - Physician Notifications Discussed Care Of Patient With: Ricki Almanzar - Critical Care Time Critical Care Time: 30-74 min Discharge - Sign-Out/Discharge Documenting (check all that apply): Patient Departure - Admission Patient Received Moderate/Deep Sedation with Procedure: No - Discharge Plan Condition: Stable Disposition: ADMITTED TO [facility] Referrals: Gama GARCIA,Ricki Sabillon [Primary Care Provider] - - Billing Disposition and Condition Condition: STABLE Disposition: Admitted to [facility] - Attestation Statements Document Initiated by Scribe: Yes Documenting Scribe: Dalton Tse Provider For Whom Dea is Documenting (Include Credential): Omar Zambrano MD Scribe Attestation: Dalton uFlton scribed for Omar Zambrano MD on 07/19/19 at 0349. Scribe Documentation Reviewed: Yes Provider Attestation: The documentation as recorded by the Dalton friedman accurately reflects the service I personally performed and the decisions made by Omar miner MD Status of Scribe Document: Viewed
[2019-07-19 00:58] LABS: ABS Basophils 0.1 10^3/ul (0-0.2); ABS Eosinophils 0.2 10^3/ul (0-0.6); ABS Lymphocytes 1.4 10^3/ul (1.0-4.8); ABS Monocytes 0.8 10^3/ul (0-0.8); Eosinophil % 2.6 %; Hematocrit 37 % (35-47); Hemoglobin 12.5 g/dL (12.0-16.0); Mean Corpuscular HGB Conc 34 g/dL (31-36); Mean Corpuscular Hemoglobin 32 pg (27-31); Mean Corpuscular Volume 96 fL (80-97); Mean Platelet Volume 8.4 fL (7.4-10.4); Platelet Count 305 10^3/uL (150-450); Red Blood Count 3.89 10^6 /uL (3.70-4.87); Red Cell Distribution Width 15 % (10-15); White Blood Count 7.5 10^3/uL (3.5-10.8)
[2019-07-19 01:07] LABS: Activated Partial Thrombo Time 31.6 seconds (26.0-38.0); INR 1.02 (0.82-1.09)
[2019-07-19 01:18] LABS: Albumin/Globulin Ratio 1.7 (1-3); BUN/Creatinine Ratio 7.1 (8-20); Calcium 8.7 mg/dL (8.6-10.3); EGFR African American 12.4 (>60); EGFR Non-African American 10.3 (>60); Globulin 2.3 g/dL (2-4); Potassium 3.7 mmol/L (3.5-5.0); Total Bilirubin 0.7 mg/dL (0.2-1.0); Total Protein 6.3 g/dL (6.4-8.9)
[2019-07-19 01:19] LABS: Troponin I 0.01 ng/mL (<0.04)
[2019-07-19 03:48] LABS: Phosphorus 2.2 mg/dL (2.5-5.0)
[2019-07-19 07:35] VITALS: BP 105/68
--- NOTE | 2019-07-19 09:52 | CONS ---
CONSULTATION REPORT: DATE OF CONSULT: 07/19/19 PROVIDER: MACIEJ Cloud REQUESTING PROVIDER: Dr. Christina. REASON FOR CONSULT: Requesting admission. HISTORY OF PRESENT ILLNESS: Brigid Tamez is an 89-year-old white female with past medical history significant for history of CVA; hypertension; AV block, status post permanent pacemaker; and end-stage renal disease, on hemodialysis, who presented to the emergency department on the evening of 07/18/19 due to left -sided foot numbness. The patient presented to the emergency department on 01/20 at [facility] [place] a [place] and was having bilateral upper extremity and lower extremity weakness and subjective numbness as well as severe headache. Given that the patient was having TIA versus CVA symptoms, tPA was initiated. On a repeat CT brain after that the patient was found to have right-sided subarachnoid hemorrhage and small right parieto-occipital subdural hematoma and possible subdural hematoma overlying the tentorium and larger right extracranial hematoma. These subarachnoid hemorrhages and subdural hematomas were not present on the previous CT prior to administration of tPA and thus due to lack of neurosurgical coverage at this facility, she was transferred to [facility] on 07/03/19. The patient has since been discharged home and has been doing well. She did have residual left lower extremity weakness since the stroke and has been proceeding well with rehab in [place]. As previously mentioned, today she had left foot numbness and she was brought to the emergency department. Her [id number] believes that she is additionally having left leg weakness with walking that has been worse than her new baseline. Additionally, the residual symptoms the patient had since her stroke earlier this month is expressive aphasia intermittently as well as left hemianopsia. The patient denies feeling unilateral weakness, additionally denies blurred vision, double vision, blind spots, headaches, fever, chills, chest pain, difficulty breathing, slurred speech. Dr. Christina, the emergency department physician, had discussed this case with Dr. Almanzar at [place], as there is no neurosurgery coverage at this facility today. At that time, Dr. Almanzar felt that she does not need to be transferred and was safe to be admitted to [facility], which is why hospitalist medicine was called for admission. Upon my evaluation and reviewing the imaging reports, I consulted Dr. Barlow with neurology services here. Dr. Barlow believes that the patient was unsafe being admitted to this hospital in case she does have progression of subdural hematoma , as it is already noted to be larger. At that point, I contacted [facility] from where the patient was originally discharged. I contacted [facility] for consult and was put in touch with Dr. Grant. Upon discussing this case in consultation, ultimately he accepted the patient for admission. From there Dr. Christina is providing an ED to ED transfer. However, the family would prefer that the patient be at a closer facility and at my most recent update from emergency department staff, it seems that the patient will be transferred ultimately to [facility]. PAST MEDICAL HISTORY: 1. End-stage renal disease, on hemodialysis Saturday, Saturday, Saturday. 2. Hypothyroidism. 3. Hyperlipidemia. 4. Hypertension. 5. Second-degree AV block, status post permanent pacemaker. 6. History of gout. 7. History of CVA. 8. Subclavian stenosis. PAST SURGICAL HISTORY: 1. Left carotid endarterectomy. 2. Permanent pacemaker placement. 3. Appendectomy. 4. Tonsillectomy. 5. Hip ORIF. 6. Hysterectomy. HOME MEDICATIONS: 1. Cinacalcet 30 mg p.o. daily. 2. Vitamin D 50,000 units p.o. weekly. 3. Sevelamer 2400 mg p.o. t.i.d. 4. Pramipexole 0.25 mg p.o. at bedtime. 5. Acetaminophen 650 p.o. q.6 hours p.r.n. pain. 6. Rosuvastatin 20 mg p.o. daily. 7. Docusate 100 mg p.o. b.i.d. 8. Senna 1 tab p.o. at bedtime. 9. Folic acid/vitamin B complex 1 tab p.o. daily. 10. Midodrine 15 mg p.o. daily. 11. Levothyroxine 75 mcg p.o. daily. 12. Furosemide 80 mg p.o. daily. 13. Aspirin 325 mg p.o. daily. 14. Allopurinol 100 mg p.o. daily. 15. Metolazone 5 mg p.o. daily. ALLERGIES: Reaction of muscle ache to ATORVASTATIN, reaction of rash to LIDOCAINE, reaction of rash to PRILOCAINE. FAMILY HISTORY: Mother's family history is unknown. She is estranged. Father of kidney failure at age 83. SOCIAL HISTORY: The patient is a retired employee of [employer]. She has been 3 times and ultimately is a . She has 2 children. She has a remote history of smoking. She quit approximately 20 years ago and smoked approximately 1 pack per week for 40 years. The patient drinks 3 to 4 alcoholic beverages per week and denies illicit drug use. REVIEW OF SYSTEMS: An 11-point review of systems was completed and all pertinent positives and negatives are above in the HPI. All other systems are negative. PHYSICAL EXAM: General: Elderly white female, lying in hospital bed, appearing comfortable, in no acute distress. Son and [id number] are at the bedside. Eyes: Left pupil is approximately 1 mm larger in diameter than the right pupil, which is consistent with previous exam documented at this facility. PERRL. EOMI. Left peripheral vision not intact. No nystagmus. ENT : Mucous membranes are moist. Neck: Supple without JVD. Cardio: Grade 2 systolic murmur. Regular rate and rhythm. Lungs: Clear to auscultation throughout. Abdomen: Soft, nontender, nondistended without hepatosplenomegaly. Extremities: No clubbing, cyanosis, or edema. Neuro: Sensation to light touch is intact throughout. Leg strength is 4/5 on the left side, 5/5 on the right side. Strength is 5/5 in bilateral upper extremities. Face is symmetrical. Speech is clear. No ataxia. The patient is alert and oriented x3. Vital Signs: When the patient arrived to the emergency department 97.5 degrees Fahrenheit, heart rate 66, respiratory rate 16, oxygen saturation 98% on room air, and blood pressure 106/73. DIAGNOSTIC STUDIES/LAB DATA: CT brain on 07/19/19, impression: 1. There is possible slight increase in acute subdural hematoma along the right tentorium cerebelli, which previously measured perhaps at 5 mm thickness and currently measures approximately 7 mm thickness. The previously seen right subarachnoid hemorrhage has resolved. The previously seen small acute subdural hematoma along the right cerebral convexity has evolved to predominantly chronic subdural hematoma that measures the earliest thickness, which is a prominent predominantly CSF attenuation. 2. No significant mass effect or midline shift. 3. There is stable age-related diffuse cerebral volume loss and chronic microvascular ischemic disease. 4. There is decreased size of the right parietal scalp contusion. EKG: Ventricularly paced rhythm, 61 beats per minute. Overall, unchanged from previous EKG. No ST changes. Labs: White blood cell 7.5, hemoglobin 12.5, hematocrit 37, platelet count 305. INR 1.02. PTT 31.6. Sodium 136, potassium 3.7, chloride 95, carbon dioxide 32, anion gap 9, BUN 39, creatinine 4.10, glucose 109, calcium 8.7, alk phos 141, and otherwise LFTs are unremarkable. IMPRESSION AND PLAN: 1. Interval increase of acute subdural hematoma. The patient ultimately has been accepted for transfer to [facility] by Dr. Almanzar, neurosurgical attending physician. Transportation is being assembled. The patient's blood pressure is stable at this time. Neurology service here at [facility] does not feel it would be safe for the patient to stay at this facility. For this reason, she is being transferred. She is neurologically at her baseline upon my exam. 2. End-stage renal disease. The patient should continue her dialysis at [facility], Saturday, Saturday, Saturday. At this point, her electrolytes are stable. Her creatinine is at baseline. 3. Hypertension, controlled. In fact, the patient does have hypotension at this point and takes midodrine for this. Her home medications should be continued. 4. Levothyroxine, home dose should be continued. 5. Heart murmur. It appears that the patient did have a systolic murmur on previous exam at this facility, likely does not need further workup at this time. 6. Disposition: Transfer to [facility], pending. Thank you for allowing us to participate in the care of this patient. This case was reviewed by my attending, Dr. Wiliam Lyons, who agrees this plan of care. MACIEJ CLOUD [id number]/[facility] #: [id number]
== END 2019-07-19 07:15 | disposition short-term general hospital (02) ==
LOC: ED 23:50
DX: I62.00 Nontraumatic subdural hemorrhage, unspecified (principal); I69.351 Hemiplegia and hemiparesis following cerebral infarction affecting right dominant side; E03.9 Hypothyroidism, unspecified; I12.0 Hypertensive chronic kidney disease with stage 5 chronic kidney disease or end stage renal disease; N18.6 End stage renal disease; Z99.2 Dependence on renal dialysis; D63.1 Anemia in chronic kidney disease; I25.10 Atherosclerotic heart disease of native coronary artery without angina pectoris; E78.00 Pure hypercholesterolemia, unspecified; Z87.891 Personal history of nicotine dependence; Z79.82 Long term (current) use of aspirin; Z79.899 Other long term (current) drug therapy; Z88.4 Allergy status to anesthetic agent; Z88.8 Allergy status to other drugs, medicaments and biological substances
CPT/HCPCS: 36415; 70450; 80053; 83735; 84100; 84484; 85025; 85610; 85730; 93005; 99284